=== PATIENT | male | born 1940 | race Caucasian/White ===

== ENCOUNTER → 2016-12-18 | Outpatient (CLI) | payer OTHER | LOC: MMPC 11:11 | PROVIDERS: ATTEND Internal Medicine | DX: M48.06 Spinal stenosis, lumbar region (principal); J44.9 Chronic obstructive pulmonary disease, unspecified; Z02.89 Encounter for other administrative examinations | CPT/HCPCS: 99214; G0463 ==

== ENCOUNTER → 2017-03-19 | Outpatient (CLI) | payer OTHER | LOC: MMPC 11:11 | PROVIDERS: ATTEND Internal Medicine | DX: M48.06 Spinal stenosis, lumbar region (principal); M51.36 Other intervertebral disc degeneration, lumbar region; M51.34 Other intervertebral disc degeneration, thoracic region; J44.9 Chronic obstructive pulmonary disease, unspecified | CPT/HCPCS: 99214; G0463 ==

== ENCOUNTER 2017-05-01 08:37 | Inpatient (IN) | payer OTHER ==
[2017-05-01] MEDS ORDERED: ALBUTEROL SULFATE 2.5 MG/3 ML NEB ONE ×2 (08:51→08:53)
[2017-05-01] MEDS ORDERED: NORMAL SALINE 10 ML SYRINGE FLUSH IVP PRN ×4 (08:53→11:49)
[2017-05-01 09:03] LABS: HEMATOCRIT 42.8 % (42.0-52.0); HEMOGLOBIN 14.3 g/dL (14.0-18.0); MEAN CORPUSCULAR HEMOGLOBIN 31.4 PG (27-31); MEAN CORPUSCULAR HGB CONC 33.4 g/dL (33-37); MEAN CORPUSCULAR VOLUME 93.9 FL (80-90); MEAN PLATELET VOLUME 9.2 FL (7.4-12.2); RED BLOOD COUNT 4.56 10^6/uL (4.70-6.10)
[2017-05-01 09:06] LABS: CALCIUM 9.3 mg/dL (8.7-10.7); SERUM ALBUMIN 4.4 g/dL (3.5-4.8)
--- NOTE | 2017-05-01 09:09 | PDOC ---
Dyspnea HPI - General Chief Complaint: Dyspnea Stated Complaint: difficulty breathing Date Seen by Provider: 05/01/17 Time Seen by Provider: 08:50 Source: POSITIVE: Patient - History of Present Illness Initial Comments: Patient is a very nice 76-year-old gentleman with known history of COPD long history of smoking and stopped about 6 years ago who about a week ago started to have increasing shortness of breath cough and this has worsened through that period time until this morning he was having marketed difficulty breathing despite turning his baseline 3 L of oxygen up to greater than 5 L and still only satting in the mid 80s. He contacted EMS. EMS arrived and found him to be on 5-6 L satting around 86 with marketed dyspnea. He was given a DuoNeb treatment and he had 2 previous albuterol nebs through the wee hours of the morning. In route to the emergency department he was given 125 mg of Solu- Medrol by EMS as well as a milligram of Ativan IV. He is breathing a little bit better is on a Venturi mask. He has had some significant sputum production recently. - Patient Home Medications Home Medications: Home Medications Hydrocortisone/Oatmeal/Aloe/E [Hydrocortisone 1% Cream] 28.4 gm TP QID 30 Days 03/13/12 Ascorbic Acid [Vitamin C] 1 tab PO DAILY tab 08/03/13 Aspirin 1 tab PO DAILY tab 08/03/13 Bacitracin/Polymyxin B Sulfate [Polysporin Eye Ointment] 3.5 gm OP QID #1 tube 08/03/13 Desonide 1 applic TP BID PRN #1 tube 08/01/14 Ferrous Gluconate 1 tab PO BID #60 tab 08/16/14 Magnesium Oxide [Magnesium] 500 mg PO DAILY cap 12/18/16 Albuterol Sulfate [Ventolin Hfa] 2 puff INH Q4-6H #3 inh 01/22/17 Omeprazole 1 cap ORAL QD #90 capsule 01/31/17 Tiotropium [place] [Spiriva] 18 mcg IH QD #90 capsule 01/31/17 Oxycodone HCl [Oxycontin] 1 tab PO Q8H #90 tab 03/19/17 Oxycodone HCl/Acetaminophen [Oxycodon-Acetaminophen 7.5-325] 1 tab PO Q4H PRN # 180 tab 03/19/17 Temazepam 1 cap PO QHS PRN #90 cap 03/19/17 Fluticasone/Salmeterol [Advair Hfa] 2 puff INH BID #3 inh 03/31/17 Imiquimod [Aldara] 1 applic TOPICAL 3XW #36 sachet 03/31/17 Montelukast Sodium [Singulair] 10 mg ORAL QD #90 tab 03/31/17 Potassium Chloride [Klor-Con M20] 20 meq PO BID #180 tab 03/31/17 Citalopram Hydrobromide [Citalopram Hbr] 0.5 tab PO DAILY #45 tab 04/09/17 Tizanidine HCl 1 tab PO Q8H PRN #270 tab 04/09/17 - Patient Allergies Allergies/Adverse Reactions: Allergies Allergy/AdvReac Type Severity Reaction Status Date / Time meperidine HCl [From Demerol] Allergy Severe HALLUCINATI Verified 05/01/17 09:01 ONS pentazocine lactate Allergy Intermediate NAUSEA Verified 05/01/17 09:01 [From [place]] Sulfa (Sulfonamide Allergy Intermediate rash Verified 05/01/17 09:01 Antibiotics) PAIN CONTRACT AdvReac Unknown NOT Uncoded 05/01/17 09:01 APPLICABLE Past Medical History - heen HEENT History: Denies History Additional HEENT History: UPPER AND LOWER DENTURES Cardiovascular History: Angina Additional Cardiovasular History: STENT PLACED Respiratory History: COPD Additional Respiratory History: RECENT URI, BRONCHITIS, TREATED WITH ABX Gastrointestinal History: Denies History Additional Gastrointestinal History: Hx of constipation. 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 History of Sexually Transmitted Diseases: No Cancer History: Denies History History of MDRO: No History of Other Communicable Diseases: No Alcohol Use: None Substance Use Type: None Previous Surgical History: Yes Type / Date of Surgery: T&A/ BILAT CTR/ COLE/ CORONARY STENT/ MASS REMOVED FROM PANCREASE, NON CA/ ANKLE SX/ LEFT TARSAL TUNNEL/TSA Anesthesia Reactions: No Malignant Hyperthermia: No Significant Family History: No pertinent family hx Past Medical History Reviewed: Reviewed - No Changes ROS - Limitations ROS Limitations: No Limitations Constitution: DENIES: Chills Cardiovascular: REPORTS: Denies Cardiac Symptoms Respiratory: REPORTS: Shortness Of Breath Neurological: REPORTS: Denies Neuro Symptoms Gastrointestinal: REPORTS: Denies GI Symptoms Dyspnea Physical Exam - General Appearance General Appearance: REPORTS: Alert, Cooperative - HEENT HEENT: POSITIVE: Head Inspection Nml, Eyes Inspection Nml - Respiratory Respiratory: REPORTS: Other (Has definite work of breathing. He is also to Neck and requiring a mask to maintain saturations in the 90s. Very wheezy limited air movement) - Cardiovascular Cardiovascular: REPORTS: Regular Rate and Rhythm, Heart Sounds Normal - Skin Skin: REPORTS: Intact, Normal For Race - Extremities Extremity: Non-Tender: (All Extremities), Normal ROM: (All Extremities), Normal Inspection: (All Extremities) - Neurological / Psychological Neurological: POSITIVE: Affect Apporpriate, Oriented X3 Patient Care Time - Estimated PCT Patient Care Time (In Minutes): 15 Vital Signs - Recent Vital Signs Vital Signs: Vital Signs (Last 8 hours) Temp Pulse Resp BP Pulse Ox 05/01/17 08:37 97.2 F 102 H 22 130/68 98 - VS Reviewed Vital Signs Reviewed: Yes Discharge Clinical Impression: Chronic obstructive lung disease
[2017-05-01 09:18] LABS: PLATELET MORPHOLOGY COMMENT SEE COMMENTS (NORM); RBC MORPHOLOGY COMMENT NORMAL MORPHOLOGY (NORM); WBC MORPHOLOGY COMMENT SEE COMMENTS (NORM)
[2017-05-01 09:19] LABS: BAND NEUTROPHILS % 0 % (0-10); BASOPHILS % (MANUAL) 0 % (0-1); EOSINOPHILS % (MANUAL) 2 % (0-8); LYMPHOCYTES % (MANUAL) 19 % (10-50); MONOCYTES % (MANUAL) 4 % (0-12); NEUTROPHILS % (MANUAL) 75 % (50-80)
[2017-05-01] MEDS ORDERED: cefTRIAXone Inj 2 GM in Sodium Chloride 0.9% 100 ML IV ONE (09:21)
[2017-05-01] MEDS ORDERED: AZITHROMYCIN 250 MG TABLET PO ONE (09:21)
--- NOTE | 2017-05-01 09:26 | PDOC ---
Transfer of Care - Care Accepted Time Care Transferred: 09:00 Report from Transferring Physician Received: Yes MDM / ED Course: This patient came to the emergency room via EMS this morning with hypoxia. Patient was not feeling well yesterday and overnight began to have increasing oxygen requirements. He did utilize multiple nebulizer treatments at home. When EMS arrived his oxygen saturations were in the mid 80s, and was requiring 5 L of oxygen to maintain his oxygen saturation in the low 90 range. He was transported to [facility] for further evaluation. During his time in the emergency room under Dr. Michaud's care labs were drawn, blood cultures obtained, chest x-ray was ordered. Results for all studies were pending at the end of Dr. Michaud's shift. Patient did receive DuoNeb and Solu-Medrol. Home Medications: Home Medications Hydrocortisone/Oatmeal/Aloe/E [Hydrocortisone 1% Cream] 28.4 gm TP QID 30 Days 03/13/12 Ascorbic Acid [Vitamin C] 1 tab PO DAILY tab 08/03/13 Aspirin 1 tab PO DAILY tab 08/03/13 Bacitracin/Polymyxin B Sulfate [Polysporin Eye Ointment] 3.5 gm OP QID #1 tube 08/03/13 Desonide 1 applic TP BID PRN #1 tube 08/01/14 Ferrous Gluconate 1 tab PO BID #60 tab 08/16/14 Magnesium Oxide [Magnesium] 500 mg PO DAILY cap 12/18/16 Albuterol Sulfate [Ventolin Hfa] 2 puff INH Q4-6H #3 inh 01/22/17 Omeprazole 1 cap ORAL QD #90 capsule 01/31/17 Tiotropium [place] [Spiriva] 18 mcg IH QD #90 capsule 01/31/17 Oxycodone HCl [Oxycontin] 1 tab PO Q8H #90 tab 03/19/17 Oxycodone HCl/Acetaminophen [Oxycodon-Acetaminophen 7.5-325] 1 tab PO Q4H PRN # 180 tab 03/19/17 Temazepam 1 cap PO QHS PRN #90 cap 03/19/17 Fluticasone/Salmeterol [Advair Hfa] 2 puff INH BID #3 inh 03/31/17 Imiquimod [Aldara] 1 applic TOPICAL 3XW #36 sachet 03/31/17 Montelukast Sodium [Singulair] 10 mg ORAL QD #90 tab 03/31/17 Potassium Chloride [Klor-Con M20] 20 meq PO BID #180 tab 03/31/17 Citalopram Hydrobromide [Citalopram Hbr] 0.5 tab PO DAILY #45 tab 04/09/17 Tizanidine HCl 1 tab PO Q8H PRN #270 tab 04/09/17 Allergies/Adverse Reactions: Allergies meperidine HCl [From Demerol] Allergy (Severe, Verified 05/01/17 09:01) HALLUCINATIONS pentazocine lactate [From [place]] Allergy (Intermediate, Verified 05/01/17 09:01 ) NAUSEA Sulfa (Sulfonamide Antibiotics) Allergy (Intermediate, Verified 05/01/17 09:01) rash PAIN CONTRACT Adverse Reaction (Unknown, Uncoded 05/01/17 09:01) NOT APPLICABLE Vital Signs Reviewed: Yes Nurse's Notes Reviewed & Considered: Yes - Pending Patient Care Items Pending Patient Care Items: POSITIVE: Labs, X-ray Results - Expected Patient Outcome Tentative Impression of Patient: COPD exacerbation versus pneumonia Expected Disposition: POSITIVE: Admit IP - Re-Evaluation of Patient Re-Examine Time:: 10:09 Disposition of Patient: POSITIVE: Admitted Counseled: POSITIVE: Patient, RE: Lab Results, RE: Radiology Results, RE: DX, RE : Need for F/U Clinical Impression Documented: Yes - Results Reviewed Lab Results Reviewed by Me: Yes Lab Results: Laboratory Results 05/01/17 05/01/17 05/01/17 Range/Units 08:56 09:25 09:32 WBC 7.77 (4.8-10.8) 10^3/uL RBC 4.56 L (4.70-6.10) 10^6/uL Hgb 14.3 (14.0-18.0) g/dL Hct 42.8 (42.0-52.0) % MCV 93.9 H (80-90) FL MCH 31.4 H (27-31) PG MCHC 33.4 (33-37) g/dL RDW Std Deviation 47.7 (39-50) fL RDW Coeff of Dwight 14.2 (11.5-14.5) % Plt Count 189 (140-350) 10*3/uL MPV 9.2 (7.4-12.2) FL Neutrophils % (Manual) 75 (50-80) % Band Neutrophils % 0 (0-10) % Lymphocytes % (Manual) 19 (10-50) % Monocytes % (Manual) 4 (0-12) % Eosinophils % (Manual) 2 (0-8) % Basophils % (Manual) 0 (0-1) % Metamyelocytes % Not Reportable Myelocytes % Not Reportable Promyelocytes % Not Reportable Blast Cells Not Reportable WBC Morphology Comment See comments (NORM) Plt Morphology Comment See comments (NORM) RBC Morph Comment Normal morphology (NORM) VBG pH 7.33 (7.32-7.42) VBG pCO2 43 L (45-55) mmHg VBG HCO3 23 (22-26) mmol/L VBG Base Excess -3 L (-2-2) MMOL/L Sodium 143 (135-145) meq/L Potassium 3.1 L (3.8-5.2) meq/L Chloride 102 (98-112) meq/L Carbon Dioxide 24 (23-33) meq/L Anion Gap 17 (5-20) BUN 20 (7-22) mg/dL Creatinine 0.8 (0.70-1.50) mg/dL Estimated GFR (>60 ml/min/1.73m(2)) BUN/Creatinine Ratio 25.00 H (6-20) Glucose 111 H (78-110) mg/dL Calculated Osmolality 299.0 H (267-292) mOsm/kg Lactic Acid 2.1 (0.70-2.10) MMOL/L Calcium 9.3 (8.7-10.7) mg/dL Total Bilirubin 0.4 (0.3-1.2) mg/dL AST 57 (21-57) IU/L ALT 54 (21-72) IU/L Alkaline Phosphatase 181 H (38-126) IU/L Total Protein 7.9 (6.1-8.0) g/dL Albumin 4.4 (3.5-4.8) g/dL Globulin 3.5 (2.50-4.10) g/dL Albumin/Globulin Ratio 1.20 L (1.3-2.0) mg/g Patient Care Time - Estimated PCT Patient Care Time (In Minutes): 20 Vital Signs - Recent Vital Signs Vital Signs: Vital Signs (Last 8 hours) Temp Pulse Resp BP Pulse Ox 05/01/17 08:37 97.2 F 102 H 22 130/68 98 - VS Reviewed Vital Signs Reviewed: Yes Discharge Clinical Impression: Chronic obstructive lung disease Discharge Disposition: Admit to Inpatient Condition: Stable Patient Instructions Given at Discharge: COPD (Chronic Obstructive Pulmonary Disease) (ED) Date Decision to Admit to Inpatient: 05/01/17 Time Decision to Admit to Inpatient: 10:00
[2017-05-01 09:39] LABS: VENOUS PH 7.33 (7.32-7.42)
--- NOTE | 2017-05-01 10:02 | DI ---
XR CXR 2VW PA/LAT,05/01/2017 8:53 AM: Clinical History: Dyspnea and COPD exacerbation. Previous Exam: August 15, 2016 Findings: PA and lateral views of the chest are obtained, and demonstrate some mild increased density within th e right lower lobe. There is stable diffuse COPD. There is flattening of the hemidiaphragms. Patient is status post left total shoulder arthroplasty. There is a 1 cm cortical defect involving the medial cortex of the right proximal humerus. Overlying EKG leads are seen. The cardiomediastinum is stable and there is stable tortuosity of the a collin. Impression: 1. Mild increased density within the lung bases bilaterally is most consistent with some early airspa ce disease. Cannot rule out pneumonia. 2. Small 1 cm cortical lucency involving the medial cortex of the right proximal humerus. Recommend d edicated humeral views for further evaluation.
[2017-05-01] MEDS ORDERED: Sodium Chloride 0.9% 1,000 ML PRIMARY IV ONE (10:23)
[2017-05-01] MEDS ORDERED: LORazepam 2 MG/1 ML VIAL IVP ONE (10:42)
[2017-05-01] MEDS ORDERED: IPRATROPIUM/ALBUTEROL SULFATE 3 ML NEB NEB PRN (11:25)
[2017-05-01] MEDS ORDERED: LIDOCAINE W/ SODIUM BICARB 0.5 ML SYR SUBD PRN ×2 (11:25→11:49)
[2017-05-01] MEDS ORDERED: ONDANSETRON 4 MG/2 ML VIAL IVP PRN ×2 (11:25→11:49)
[2017-05-01] MEDS ORDERED: cefTRIAXone Inj 2 GM in Sodium Chloride 0.9% 100 ML IV SCH (11:30)
--- NOTE | 2017-05-01 11:36 | PDOC ---
History and Physical - History of Present Illness History of Present Illness: This very nice 76-year-old gentleman who presents to the emergency room with hypoxia brought in by EMS. His is at the bedside he started having some shortness of breath yesterday requiring more oxygen than usual he was doing the nebulizer treatments at home but the his oxygen requirements continued to increase blood cultures were drawn and he did receive a DuoNeb and steroids most likely pneumonia on x-ray patient will be admitted for further care Past Medical History Medical History: Coronary artery disease with 1 stent, COPD, depression Tobacco Use: Never Smoker Do you dip or chew tobacco: No Substance Use Type: None Medication / Allergies Home Medications: Home Medications Medication Instructions Recorded Confirmed Type Hydrocortisone/Oatmeal/Aloe/E 28.4 gm TP QID 30 Days 03/13/12 05/01/17 Clinic [Hydrocortisone 1% Cream] Ascorbic Acid [Vitamin C] 1 tab PO DAILY tab 08/03/13 05/01/17 History Aspirin 1 tab PO DAILY tab 08/03/13 05/01/17 History Bacitracin/Polymyxin B Sulfate 3.5 gm OP QID #1 tube 08/03/13 05/01/17 Clinic [Polysporin Eye Ointment] Desonide 1 applic TP BID PRN #1 tube 08/01/14 05/01/17 Clinic Ferrous Gluconate 1 tab PO BID #60 tab 08/16/14 05/01/17 Clinic Magnesium Oxide [Magnesium] 500 mg PO DAILY cap 12/18/16 05/01/17 History Albuterol Sulfate [Ventolin Hfa] 2 puff INH Q4-6H #3 inh 01/22/17 05/01/17 Clinic Omeprazole 1 cap ORAL QD #90 capsule 01/31/17 05/01/17 Clinic Tiotropium [place] [Spiriva] 18 mcg IH QD #90 capsule 01/31/17 05/01/17 Clinic Oxycodone HCl [Oxycontin] 1 tab PO Q8H #90 tab 03/19/17 05/01/17 Clinic Oxycodone HCl/Acetaminophen 1 tab PO Q4H PRN #180 tab 03/19/17 05/01/17 Clinic [Oxycodon-Acetaminophen 7.5-325] Temazepam 1 cap PO QHS PRN #90 cap 03/19/17 05/01/17 Clinic Fluticasone/Salmeterol [Advair Hfa] 2 puff INH BID #3 inh 03/31/17 05/01/17 [facility] Imiquimod [Aldara] 1 applic TOPICAL 3XW #36 sachet 03/31/17 05/01/17 [facility] Montelukast Sodium [Singulair] 10 mg ORAL QD #90 tab 03/31/17 05/01/17 [facility] Potassium Chloride [Klor-Con M20] 20 meq PO BID #180 tab 03/31/17 05/01/17 [facility] Citalopram Hydrobromide 0.5 tab PO DAILY #45 tab 04/09/17 05/01/17 [facility] [Citalopram Hbr] Tizanidine HCl 1 tab PO Q8H PRN #270 tab 04/09/17 05/01/17 [facility] Allergies/Adverse Reactions: Allergies Allergy/AdvReac Type Severity Reaction Status Date / Time meperidine HCl [From Demerol] Allergy Severe HALLUCINATI Verified 05/01/17 09:01 ONS pentazocine lactate Allergy Intermediate NAUSEA Verified 05/01/17 09:01 [From [place]] Sulfa (Sulfonamide Allergy Intermediate rash Verified 05/01/17 09:01 Antibiotics) PAIN CONTRACT AdvReac Unknown NOT Uncoded 05/01/17 09:01 APPLICABLE Review of Systems - Respiratory Respiratory: REPORTS: Cough, Sputum, Wheezing - Cardiovascular Cardiovascular: DENIES: Negative System Review, Chest Pain, Edema, Syncope, Palpitations, Orthopnea, Paroxysmal Nocturnal Dyspnea, Other, See HPI - Gastrointestinal Gastrointestinal / Abdominal: DENIES: Negative System Review, Nausea, Vomiting, Diarrhea, Constipation, Abdominal Pain, Bloody Stool, Poor Appetite, Heartburn, Regurgitation, Bloating, Lactose Intolerance, Melena, Bright Red Blood Per Rectum, Other, See HPI - Neurological Neurologic: DENIES: Negative System Review, Headache, Numbness/Paresthesia, Tremors, Weakness, Seizures, Head Trauma, LOC, Dizziness, Confusion, Memory Loss , Difficulty Walking, Incoordination, Other, See HPI Exam - Vitals Vital Signs: Vital Signs Temperature 97.2 F Temperature Source Temporal Artery Scan Pulse Rate [Pulse Oximeter 102 Right] Respiratory Rate 22 Blood Pressure [Right Arm] 130/68 Pulse Ox 98 Oxygen Flow Rate 5 Oxygen Delivery Method Mask-Simple Height 5 ft 4 in Weight 64.864 kg - General General Appearance: POSITIVE: Cooperative, Mild Distress - Head Head Exam: POSITIVE: Normal Inspection, Normocephalic, Atraumatic - Eye Eye Exam: POSITIVE: PERRL, EOMI - Neck Neck Exam: POSITIVE: Normal Inspection - Respiratory Additional Respiratory Exam Details: Decreased sounds bilaterally bilateral expiratory wheezing - Cardiovascular Cardiovascular Exam: POSITIVE: RRR, No Murmur, No Clicks - GI/Abdominal GI/Abdominal Exam: POSITIVE: Normal Bowel Sounds, Non Tender, Soft - Extremities Extremities Exam: POSITIVE: No Clubbing Present, No Edema Present, No Cyanosis Present Results - Labs CBC and BMP: 05/01/17 08:56 05/01/17 08:56 Labs - Last 24 Hours: Laboratory Results 05/01/17 05/01/17 05/01/17 Range/Units 08:56 09:25 09:32 WBC 7.77 (4.8-10.8) 10^3/uL RBC 4.56 L (4.70-6.10) 10^6/uL Hgb 14.3 (14.0-18.0) g/dL Hct 42.8 (42.0-52.0) % MCV 93.9 H (80-90) FL MCH 31.4 H (27-31) PG MCHC 33.4 (33-37) g/dL RDW Std Deviation 47.7 (39-50) fL RDW Coeff of Dwight 14.2 (11.5-14.5) % Plt Count 189 (140-350) 10*3/uL MPV 9.2 (7.4-12.2) FL Neutrophils % (Manual) 75 (50-80) % Band Neutrophils % 0 (0-10) % Lymphocytes % (Manual) 19 (10-50) % Monocytes % (Manual) 4 (0-12) % Eosinophils % (Manual) 2 (0-8) % Basophils % (Manual) 0 (0-1) % Metamyelocytes % Not Reportable Myelocytes % Not Reportable Promyelocytes % Not Reportable Blast Cells Not Reportable WBC Morphology Comment See comments (NORM) Plt Morphology Comment See comments (NORM) RBC Morph Comment Normal morphology (NORM) VBG pH 7.33 (7.32-7.42) VBG pCO2 43 L (45-55) mmHg VBG HCO3 23 (22-26) mmol/L VBG Base Excess -3 L (-2-2) MMOL/L Sodium 143 (135-145) meq/L Potassium 3.1 L (3.8-5.2) meq/L Chloride 102 (98-112) meq/L Carbon Dioxide 24 (23-33) meq/L Anion Gap 17 (5-20) BUN 20 (7-22) mg/dL Creatinine 0.8 (0.70-1.50) mg/dL Estimated GFR (>60 ml/min/1.73m(2)) BUN/Creatinine Ratio 25.00 H (6-20) Glucose 111 H (78-110) mg/dL Calculated Osmolality 299.0 H (267-292) mOsm/kg Lactic Acid 2.1 (0.70-2.10) MMOL/L Calcium 9.3 (8.7-10.7) mg/dL Total Bilirubin 0.4 (0.3-1.2) mg/dL AST 57 (21-57) IU/L ALT 54 (21-72) IU/L Alkaline Phosphatase 181 H (38-126) IU/L Troponin I < 0.012 (< 0.040) ng/mL Total Protein 7.9 (6.1-8.0) g/dL Albumin 4.4 (3.5-4.8) g/dL Globulin 3.5 (2.50-4.10) g/dL Albumin/Globulin Ratio 1.20 L (1.3-2.0) mg/g Assessment and Plan - Patient Problems (1) Pneumonia Current Visit: Yes Status: Acute Comment: IV antibiotics CT scan of the chest is pending. (2) Chronic obstructive lung disease Current Visit: Yes Status: Acute Comment: Continue steroids and nebulizer treatments Advair and IV fluids
--- NOTE | 2017-05-01 11:52 | DI ---
CT CTA CHEST NONCORONARY W/WO,05/01/2017 10:08 AM: Clinical History: Shortness of breath Previous Exam: July 04, 2014 Findings: Multiple helically acquired CT images are obtained through the chest following a CT chest angiogram p rotocol, and demonstrate diffuse COPD. There is some septal thickening just anterior to the right irineo or fissure in the right upper lobe and the right middle lobe. There is no evidence of pleural effusion. Peripheral vascular calcifications are seen. There is a 5.1 cm simple cyst noted within the right lobe of the liver which is stable from the prior exam. Pulmonary arteries are normal without filling defect or truncation to suggest pulmonary embolism. Coronary artery calcifications are also noted. Diffuse degenerative changes of the thoracic spine are noted as well. Impression: 1. No evidence of pulmonary embolism. 2. Coronary artery disease. 3. Septal thickening just anterior to the major fissure in the right upper and middle lobe. These fin dings are most consistent with edema or inflammation. Cannot completely rule out the possibility of a n early pneumonia.
[2017-05-01] MEDS: oxyCODONE ER Tab 20 MG TAB PO SCH ×2 (12:27→19:46)
[2017-05-01] MEDS: Montelukast Tab 10 MG TAB PO SCH (12:30)
[2017-05-01] MEDS: NORMAL SALINE 10 ML SYRINGE FLUSH IVP PRN (13:02)
[2017-05-01] MEDS: IPRATROPIUM/ALBUTEROL SULFATE 3 ML NEB NEB PRN ×2 (14:46→18:33)
[2017-05-01] MEDS: OMEPRAZOLE 40 MG CAPSULE PO SCH (17:11)
[2017-05-01] MEDS: tiZANidine Tab 4 MG TAB PO PRN (19:58)
[2017-05-01] MEDS: oxyCODONE/APAP 7.5/325 Tab 1 TAB TAB PO PRN (19:59)
[2017-05-01] MEDS: POTASSIUM CHLORIDE 20 MEQ TAB PO SCH (20:00)
[2017-05-01] MEDS: FERROUS GLUCONATE 324 MG TABLET PO SCH (20:00)
[2017-05-01] MEDS: TEMAZEPAM 30 MG PO PRN (20:00)
[2017-05-01] MEDS: [UNRECOGNIZED DRUG - REMARK] INH SCH (22:01)
[2017-05-02] MEDS: oxyCODONE ER Tab 20 MG TAB PO SCH ×3 (03:22→20:27)
[2017-05-02] MEDS: oxyCODONE/APAP 7.5/325 Tab 1 TAB TAB PO PRN ×3 (03:23→20:28)
[2017-05-02] MEDS: IPRATROPIUM/ALBUTEROL SULFATE 3 ML NEB NEB PRN ×5 (03:30→19:41)
[2017-05-02 05:02] LABS: BASOPHILS # (AUTO) 0.02 10*3/UL; BASOPHILS % (AUTO) 0.3 % (0-1); EOSINOPHILS # (AUTO) 0 10*3/UL; EOSINOPHILS % (AUTO) 0 % (0-8); HEMATOCRIT 34.9 % (42.0-52.0); HEMOGLOBIN 11.4 g/dL (14.0-18.0); MEAN CORPUSCULAR HEMOGLOBIN 30.8 PG (27-31); MEAN CORPUSCULAR HGB CONC 32.7 g/dL (33-37); MEAN CORPUSCULAR VOLUME 94.3 FL (80-90); MEAN PLATELET VOLUME 9.1 FL (7.4-12.2); MONOCYTES % (AUTO) 11.2 % (5-15); NEUTROPHILS # (AUTO) 5.49 10*3/UL
[2017-05-02 05:06] LABS: PLATELET MORPHOLOGY COMMENT NORMAL MORPHOLOGY (NORM); RBC MORPHOLOGY COMMENT NORMAL MORPHOLOGY (NORM); WBC MORPHOLOGY COMMENT NORMAL MORPHOLOGY (NORM)
[2017-05-02 05:08] LABS: CALCIUM 8.1 mg/dL (8.7-10.7); SERUM ALBUMIN 3.2 g/dL (3.5-4.8)
[2017-05-02] MEDS: POTASSIUM CHLORIDE 20 MEQ TAB PO SCH ×2 (08:53→20:27)
[2017-05-02] MEDS: ASPIRIN 325 MG TABLET PO SCH (08:53)
[2017-05-02] MEDS: predniSONE Tab 20 MG TAB PO SCH (08:53)
[2017-05-02] MEDS: CITALOPRAM 20 MG TABLET PO SCH (08:54)
[2017-05-02] MEDS: FERROUS GLUCONATE 324 MG TABLET PO SCH ×2 (08:54→20:28)
[2017-05-02] MEDS: ENOXAPARIN SODIUM 40 MG/0.4 ML SYRINGE SUBCUT SCH (08:54)
[2017-05-02] MEDS: Montelukast Tab 10 MG TAB PO SCH (08:54)
[2017-05-02] MEDS ORDERED: predniSONE Tab 20 MG TAB PO SCH (09:00)
[2017-05-02] MEDS ORDERED: ENOXAPARIN SODIUM 40 MG/0.4 ML SYRINGE SUBCUT SCH (09:00)
[2017-05-02] MEDS ORDERED: CELECOXIB 200 MG CAPSULE PO SCH (09:06)
[2017-05-02] MEDS: [UNRECOGNIZED DRUG - REMARK] INH SCH ×2 (09:52→19:42)
[2017-05-02] MEDS: cefTRIAXone Inj 2 GM in Sodium Chloride 0.9% 100 ML IV SCH (10:15)
--- NOTE | 2017-05-02 12:53 | PDOC(PROG) ---
Interval History: Doing much better less short of breath is so happy about being and feeling somewhat better Objective : Data - Labs CBC and BMP: 05/02/17 04:42 05/02/17 04:42 Labs - Last 24 Hours: Laboratory Results 05/02/17 Range/Units 04:42 WBC 7.13 (4.8-10.8) 10^3/uL RBC 3.70 L (4.70-6.10) 10^6/uL Hgb 11.4 L (14.0-18.0) g/dL Hct 34.9 L (42.0-52.0) % MCV 94.3 H (80-90) FL MCH 30.8 (27-31) PG MCHC 32.7 L (33-37) g/dL RDW Std Deviation 46.3 (39-50) fL RDW Coeff of Dwight 13.9 (11.5-14.5) % Plt Count 161 (140-350) 10*3/uL MPV 9.1 (7.4-12.2) FL Immature Gran % (Auto) 0.3 (0-5) % Neut % (Auto) 77.0 (50-80) % Lymph % (Auto) 11.2 (10-50) % [place] % (Auto) 11.2 (5-15) % Eos % (Auto) 0 (0-8) % Baso % (Auto) 0.3 (0-1) % Immature Gran # (Auto) 0.02 10*3/UL Neut # (Auto) 5.49 10*3/UL Lymph # (Auto) 0.80 10*3/uL [place] # (Auto) 0.80 (0.3-0.8) 10*3/UL Eos # (Auto) 0 10*3/UL Baso # (Auto) 0.02 10*3/UL WBC Morphology Comment Normal morphology (NORM) Plt Morphology Comment Normal morphology (NORM) RBC Morph Comment Normal morphology (NORM) Sodium 142 (135-145) meq/L Potassium 4.4 D (3.8-5.2) meq/L Chloride 111 (98-112) meq/L Carbon Dioxide 23 (23-33) meq/L Anion Gap 8 (5-20) BUN 14 (7-22) mg/dL Creatinine 0.7 (0.70-1.50) mg/dL Estimated GFR (>60 ml/min/1.73m(2)) BUN/Creatinine Ratio 20.00 (6-20) Glucose 107 (78-110) mg/dL Calculated Osmolality 294.0 H (267-292) mOsm/kg Calcium 8.1 L (8.7-10.7) mg/dL Total Bilirubin 0.2 L (0.3-1.2) mg/dL AST 53 (21-57) IU/L ALT 45 (21-72) IU/L Alkaline Phosphatase 109 (38-126) IU/L Total Protein 5.8 L (6.1-8.0) g/dL Albumin 3.2 L (3.5-4.8) g/dL Globulin 2.6 (2.50-4.10) g/dL Albumin/Globulin Ratio 1.20 L (1.3-2.0) mg/g Objective : Exam - General General Appearance: Cooperative - Respiratory Additional Respiratory Exam Details: Better air movement but still very tight with expiratory wheezes - Cardiovascular Cardiovascular Exam: RRR, No Murmur, No Clicks - GI/Abdominal GI/Abdominal Exam: Normal Bowel Sounds, Non Tender, Non Distended, Soft - Extremities Extremities Exam: No Clubbing Present, No Edema Present Assessment and Plan - Patient Problems (1) Pneumonia Current Visit: Yes Status: Acute Comment: Continue IV antibiotics and steroids most likely this represents COPD exacerbation and not pneumonia (2) Chronic obstructive lung disease Current Visit: Yes Status: Acute Comment: Continue inhalers as well as antibiotics and steroids (3) Hypokalemia Current Visit: Yes Status: Acute Comment: This was replaced and improved
[2017-05-02] MEDS: OMEPRAZOLE 40 MG CAPSULE PO SCH (15:56)
[2017-05-02] MEDS: tiZANidine Tab 4 MG TAB PO PRN (20:27)
[2017-05-02] MEDS: TEMAZEPAM 30 MG PO PRN (20:28)
[2017-05-03] MEDS: oxyCODONE ER Tab 20 MG TAB PO SCH ×2 (04:14→12:03)
[2017-05-03] MEDS: IPRATROPIUM/ALBUTEROL SULFATE 3 ML NEB NEB PRN ×4 (04:21→14:39)
[2017-05-03] MEDS: [UNRECOGNIZED DRUG - REMARK] INH SCH (06:44)
[2017-05-03] MEDS: ASPIRIN 325 MG TABLET PO SCH (08:45)
[2017-05-03] MEDS: NORMAL SALINE 10 ML SYRINGE FLUSH IVP PRN (08:45)
[2017-05-03] MEDS: CITALOPRAM 20 MG TABLET PO SCH (08:45)
[2017-05-03] MEDS: POTASSIUM CHLORIDE 20 MEQ TAB PO SCH (08:45)
[2017-05-03] MEDS: predniSONE Tab 20 MG TAB PO SCH (08:46)
[2017-05-03] MEDS: FERROUS GLUCONATE 324 MG TABLET PO SCH (08:46)
[2017-05-03] MEDS: ENOXAPARIN SODIUM 40 MG/0.4 ML SYRINGE SUBCUT SCH (08:46)
[2017-05-03] MEDS: Montelukast Tab 10 MG TAB PO SCH (08:46)
[2017-05-03] MEDS: oxyCODONE/APAP 7.5/325 Tab 1 TAB TAB PO PRN (08:55)
[2017-05-03] MEDS: cefTRIAXone Inj 2 GM in Sodium Chloride 0.9% 100 ML IV SCH (10:08)
[2017-05-03 14:24] VITALS: RESP 22; TEMP 97.8
--- NOTE | 2017-05-03 15:05 | DCSUMMARY ---
Hospitalization Summary Admit Date: 05/01/17 Discharge Date: 05/03/17 Primary Diagnosis:: COPD exacerbation Hospital Course: This very pleasant 76-year-old male who came in short of breath, and was admitted for further evaluation and management. It was thought initially that he might have a pneumonia, and he was placed on Rocephin and Zithromax. Became more clear after CTA of the chest that he had COPD with some septal thickening consistent with a COPD exacerbation. No evidence of pulmonary emboli. He responded very well to albuterol and respiratory therapies and antibiotics. He states today that he feels significantly better than when he came into the hospital he would like to go home. He feels that he's back to his normal baseline. No complaints of chest pain, nausea or vomiting, or shortness of breath today beyond baseline shortness of breath. He states he has oxygen and breathing supplies at home as well as albuterol at home. Assessment and Plan: 1. As per discharge assessments noted 2. Disposition: Patient is discharged home. 3. Condition on discharge, stable and improved. 4. Diet: regular diet 5. Activities: resume normal activities 6. Follow-Up: 1. See Dr. Redding in one week 2. 7. Medications at the Time of Discharge: Home Medications Medication Instructions Recorded Confirmed Type Hydrocortisone/Oatmeal/Aloe/E 28.4 gm TP QID 30 Days 03/13/12 05/01/17 Clinic [Hydrocortisone 1% Cream] Ascorbic Acid [Vitamin C] 1 tab PO DAILY tab 08/03/13 05/01/17 History Aspirin 1 tab PO DAILY tab 08/03/13 05/01/17 History Bacitracin/Polymyxin B Sulfate 3.5 gm OP QID #1 tube 08/03/13 05/01/17 Clinic [Polysporin Eye Ointment] Desonide 1 applic TP BID PRN #1 tube 08/01/14 05/01/17 Clinic Ferrous Gluconate 1 tab PO BID #60 tab 08/16/14 05/01/17 Clinic Magnesium Oxide [Magnesium] 500 mg PO DAILY cap 12/18/16 05/01/17 History Albuterol Sulfate [Ventolin Hfa] 2 puff INH Q4-6H #3 inh 01/22/17 05/01/17 Clinic Omeprazole 1 cap ORAL QD #90 capsule 01/31/17 05/01/17 Clinic Tiotropium [place] [Spiriva] 18 mcg IH QD #90 capsule 01/31/17 05/01/17 Clinic Oxycodone HCl [Oxycontin] 1 tab PO Q8H #90 tab 03/19/17 05/01/17 Clinic Oxycodone HCl/Acetaminophen 1 tab PO Q4H PRN #180 tab 03/19/17 05/01/17 Clinic [Oxycodon-Acetaminophen 7.5-325] Temazepam 1 cap PO QHS PRN #90 cap 03/19/17 05/01/17 Clinic Fluticasone/Salmeterol [ADVAIR HFA] 2 puff INH BID #3 inh 03/31/17 05/01/17 Clinic Imiquimod [Aldara] 1 applic TOPICAL 3XW #36 sachet 03/31/17 05/01/17 Clinic Montelukast Sodium [Singulair] 10 mg ORAL QD #90 tab 03/31/17 05/01/17 Clinic Potassium Chloride [Klor-Con M20] 20 meq PO BID #180 tab 03/31/17 05/01/17 Clinic Citalopram Hydrobromide 0.5 tab PO DAILY #45 tab 04/09/17 05/01/17 Clinic [Citalopram HBr] Tizanidine HCl 1 tab PO Q8H PRN #270 tab 04/09/17 05/01/17 Clinic Cefuroxime Axetil [Ceftin] 500 mg PO BID #6 tablet 05/03/17 Rx Prednisone 10 mg PO DAILY #30 tab 05/03/17 Rx 8. Time, care, counseling and coordination of care for this discharge is less than 30 minutes. Exam - Vitals Vital Signs: Vital Signs Temperature 97.8 F Temperature Source Oral Pulse Rate [Telemetry] 93 Pulse Rate [Pulse Oximeter 97 Right] Pulse Rate 78 Respiratory Rate 22 Blood Pressure [Right Arm] 128/63 Pulse Ox 95 Oxygen Flow Rate 3 Oxygen Delivery Method Nasal Cannula Height 5 ft 4 in Weight 140 lb 9.6 oz - General General Appearance: POSITIVE: No Acute Distress, Cooperative - Head Head Exam: POSITIVE: Normal Inspection, Normocephalic, Atraumatic - Respiratory Respiratory Exam: POSITIVE: Clear to Auscultation - Bilaterally, Breathing Non Labored, Decreased Breath Sounds - Cardiovascular Cardiovascular Exam: POSITIVE: RRR, No Murmur, No Clicks, No Gallops, No Rubs, No JVD - GI/Abdominal GI/Abdominal Exam: POSITIVE: Normal Bowel Sounds, Non Tender, Non Distended, Soft - Extremities Extremities Exam: POSITIVE: No Clubbing Present, No Edema Present, No Cyanosis Present - Neurological Neurological Exam: POSITIVE: Alert, Oriented x 3, Normal Gait, No Facial Droop, Speech Intact / Clear, Moves All Extremities Equally - Psychiatric Psychiatric Exam: POSITIVE: Normal Affect, Normal Mood Data Perinent Studies: Laboratory Results 05/01/17 05/01/17 05/01/17 Range/Units 08:56 09:25 09:32 WBC 7.77 (4.8-10.8) 10^3/uL RBC 4.56 L (4.70-6.10) 10^6/uL Hgb 14.3 (14.0-18.0) g/dL Hct 42.8 (42.0-52.0) % MCV 93.9 H (80-90) FL MCH 31.4 H (27-31) PG MCHC 33.4 (33-37) g/dL RDW Std Deviation 47.7 (39-50) fL RDW Coeff of Dwight 14.2 (11.5-14.5) % Plt Count 189 (140-350) 10*3/uL MPV 9.2 (7.4-12.2) FL Immature Gran % (Auto) (0-5) % Neut % (Auto) (50-80) % Lymph % (Auto) (10-50) % [place] % (Auto) (5-15) % Eos % (Auto) (0-8) % Baso % (Auto) (0-1) % Immature Gran # (Auto) 10*3/UL Neut # (Auto) 10*3/UL Lymph # (Auto) 10*3/uL [place] # (Auto) (0.3-0.8) 10*3/UL Eos # (Auto) 10*3/UL Baso # (Auto) 10*3/UL Neutrophils % (Manual) 75 (50-80) % Band Neutrophils % 0 (0-10) % Lymphocytes % (Manual) 19 (10-50) % Monocytes % (Manual) 4 (0-12) % Eosinophils % (Manual) 2 (0-8) % Basophils % (Manual) 0 (0-1) % Metamyelocytes % Not Reportable Myelocytes % Not Reportable Promyelocytes % Not Reportable Blast Cells Not Reportable WBC Morphology Comment See comments (NORM) Plt Morphology Comment See comments (NORM) RBC Morph Comment Normal morphology (NORM) VBG pH 7.33 (7.32-7.42) VBG pCO2 43 L (45-55) mmHg VBG HCO3 23 (22-26) mmol/L VBG Base Excess -3 L (-2-2) MMOL/L Sodium 143 (135-145) meq/L Potassium 3.1 L (3.8-5.2) meq/L Chloride 102 (98-112) meq/L Carbon Dioxide 24 (23-33) meq/L Anion Gap 17 (5-20) BUN 20 (7-22) mg/dL Creatinine 0.8 (0.70-1.50) mg/dL Estimated GFR (>60 ml/min/1.73m(2)) BUN/Creatinine Ratio 25.00 H (6-20) Glucose 111 H (78-110) mg/dL Calculated Osmolality 299.0 H (267-292) mOsm/kg Lactic Acid 2.1 (0.70-2.10) MMOL/L Calcium 9.3 (8.7-10.7) mg/dL Total Bilirubin 0.4 (0.3-1.2) mg/dL AST 57 (21-57) IU/L ALT 54 (21-72) IU/L Alkaline Phosphatase 181 H (38-126) IU/L Troponin I < 0.012 (< 0.040) ng/mL Total Protein 7.9 (6.1-8.0) g/dL Albumin 4.4 (3.5-4.8) g/dL Globulin 3.5 (2.50-4.10) g/dL Albumin/Globulin Ratio 1.20 L (1.3-2.0) mg/g 05/02/17 Range/Units 04:42 WBC 7.13 (4.8-10.8) 10^3/uL RBC 3.70 L (4.70-6.10) 10^6/uL Hgb 11.4 L (14.0-18.0) g/dL Hct 34.9 L (42.0-52.0) % MCV 94.3 H (80-90) FL MCH 30.8 (27-31) PG MCHC 32.7 L (33-37) g/dL RDW Std Deviation 46.3 (39-50) fL RDW Coeff of [place] 13.9 (11.5-14.5) % Plt Count 161 (140-350) 10*3/uL MPV 9.1 (7.4-12.2) FL Immature Gran % (Auto) 0.3 (0-5) % Neut % (Auto) 77.0 (50-80) % Lymph % (Auto) 11.2 (10-50) % [place] % (Auto) 11.2 (5-15) % Eos % (Auto) 0 (0-8) % Baso % (Auto) 0.3 (0-1) % Immature Gran # (Auto) 0.02 10*3/UL Neut # (Auto) 5.49 10*3/UL Lymph # (Auto) 0.80 10*3/uL [place] # (Auto) 0.80 (0.3-0.8) 10*3/UL Eos # (Auto) 0 10*3/UL Baso # (Auto) 0.02 10*3/UL Neutrophils % (Manual) (50-80) % Band Neutrophils % (0-10) % Lymphocytes % (Manual) (10-50) % Monocytes % (Manual) (0-12) % Eosinophils % (Manual) (0-8) % Basophils % (Manual) (0-1) % Metamyelocytes % Myelocytes % Promyelocytes % Blast Cells WBC Morphology Comment Normal morphology (NORM) Plt Morphology Comment Normal morphology (NORM) RBC Morph Comment Normal morphology (NORM) VBG pH (7.32-7.42) VBG pCO2 (45-55) mmHg VBG HCO3 (22-26) mmol/L VBG Base Excess (-2-2) MMOL/L Sodium 142 (135-145) meq/L Potassium 4.4 D (3.8-5.2) meq/L Chloride 111 (98-112) meq/L Carbon Dioxide 23 (23-33) meq/L Anion Gap 8 (5-20) BUN 14 (7-22) mg/dL Creatinine 0.7 (0.70-1.50) mg/dL Estimated GFR (>60 ml/min/1.73m(2)) BUN/Creatinine Ratio 20.00 (6-20) Glucose 107 (78-110) mg/dL Calculated Osmolality 294.0 H (267-292) mOsm/kg Lactic Acid (0.70-2.10) MMOL/L Calcium 8.1 L (8.7-10.7) mg/dL Total Bilirubin 0.2 L (0.3-1.2) mg/dL AST 53 (21-57) IU/L ALT 45 (21-72) IU/L Alkaline Phosphatase 109 (38-126) IU/L Troponin I (< 0.040) ng/mL Total Protein 5.8 L (6.1-8.0) g/dL Albumin 3.2 L (3.5-4.8) g/dL Globulin 2.6 (2.50-4.10) g/dL Albumin/Globulin Ratio 1.20 L (1.3-2.0) mg/g Patient Problems - Patient Problem List (1) COPD exacerbation Current Visit: Yes Status: Acute (2) Coronary artery disease Current Visit: Yes Status: Acute Qualifiers: Coronary Disease-Associated Artery/Lesion type: [place] artery [place] vs. transplanted heart: [place] heart Associated angina: without angina Qualified Description: Coronary artery disease involving [place] coronary artery of [place] heart without angina pectoris Qualifier Code(s): (I25.10) Atherosclerotic heart disease of [place] coronary artery without angina pectoris (3) Depression Current Visit: Yes Status: Acute Qualifiers: Depression Type: unspecified Qualified Description: Depression, unspecified depression type Qualifier Code(s): (F32.9) Major depressive disorder, single episode, unspecified
== END 2017-05-03 16:16 | disposition home or self-care (01) | DRG 190 ==
LOC: ER 08:37 → SUPCPDRO 08:37 → MED/SURG 11:21
PROVIDERS: ADMIT Internal Medicine; ATTEND Internal Medicine
DX: J44.9 Chronic obstructive pulmonary disease, unspecified (principal); Z87.891 Personal history of nicotine dependence; J44.1 Chronic obstructive pulmonary disease with (acute) exacerbation; J18.9 Pneumonia, unspecified organism; I25.10 Atherosclerotic heart disease of native coronary artery without angina pectoris; F32.9 Major depressive disorder, single episode, unspecified
CPT/HCPCS: 36415; 71020; 71275; 80053; 82803; 83605; 84484; 85007; 85025; 87040; 94640; 94761; 96365; 96375; 99285; J0696; J1650; J7030; J7050; J7512; J7620

== ENCOUNTER → 2017-05-06 | Outpatient (CLI) | payer OTHER | LOC: MMPC 11:11 | PROVIDERS: ATTEND Internal Medicine | DX: J44.9 Chronic obstructive pulmonary disease, unspecified (principal) | CPT/HCPCS: 99213; G0463 ==

== ENCOUNTER 2018-07-07 17:14 | Inpatient (IN) ==
[2018-07-07] MEDS ORDERED: Sodium Chloride 0.9% 1,000 ML PRIMARY IV ONE (17:24)
[2018-07-07] MEDS ORDERED: NITROGLYCERIN 0.4 MG SL TAB (BOTTLE OF 3) SL PRN (17:24)
[2018-07-07] MEDS ORDERED: NITROGLYCERIN 0.4 MG SL TAB (BOTTLE OF 3) SL ONE (17:24)
--- NOTE | 2018-07-07 17:27 | EKG ---
[address] [address] Measurements Intervals [place] Rate: 83 P: 81 NC: 135 QRS: 20 QRSD: 73 T: 63 QT: 358 QTc: 398 Interpretive Statements SINUS RHYTHM LOW QRS VOLTAGE IN EXTREMITY LEADS [QRS DEFLECTION < 0.5 mV IN LIMB LEADS] Compared to ECG 03/08/2014 10:06:19 Low QRS voltage now present Electronically Signed On 07-10-18 07:53:23 MDT by Yusef Tejeda MD [email or web address]
[2018-07-07 17:40] LABS: BASOPHILS # (AUTO) 0.02 10*3/UL; BASOPHILS % (AUTO) 0.3 % (0-1); EOSINOPHILS # (AUTO) 0.47 10*3/UL; EOSINOPHILS % (AUTO) 6.4 % (0-8); Hematocrit [HCT] 42.9 % (42.0-52.0); Hemoglobin [HGB] 14.4 g/dL (14.0-18.0); MEAN CORPUSCULAR HGB CONC 33.6 g/dL (33-37); MEAN CORPUSCULAR VOLUME 95.3 FL (80-90); MEAN PLATELET VOLUME 9.3 FL (7.4-12.2); MONOCYTES # (AUTO) 0.67 10*3/UL (0.3-0.8); MONOCYTES % (AUTO) 9.2 % (5-15); NEUTROPHILS # (AUTO) 4.14 10*3/UL; NEUTROPHILS % (AUTO) 56.6 % (50-80)
[2018-07-07 17:41] LABS: BLOOD UREA NITROGEN 22 mg/dL (7-22); PLATELET MORPHOLOGY COMMENT NORMAL MORPHOLOGY (NORM); RBC MORPHOLOGY COMMENT NORMAL MORPHOLOGY (NORM); WBC MORPHOLOGY COMMENT NORMAL MORPHOLOGY (NORM)
[2018-07-07] MEDS ORDERED: MORPHINE SULFATE 2 MG/1 ML IVP ONE (18:00)
[2018-07-07 18:20] LABS: LIPASE 47 IU/L (23-300)
--- NOTE | 2018-07-07 18:45 | PDOC ---
Chest Pain HPI - General Chief Complaint: Chest Pain Stated Complaint: chest pain Date Seen by Provider: 07/07/18 Time Seen by Provider: 17:20 Source: Patient, Spouse Exam Limitations: POSITIVE: No limitations Treatment Prior to Arrival: REPORTS: Aspirin (Patient took 1 adult aspirin just prior to coming to the emergency room) Nurse's Notes Reviewed & Considered: Yes - History of Present Illness Initial Comments: The patient is a 78-year-old male. 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 Patient upon arrival rates the pain as an 8 on a scale of 10 in intensity. He took 1 adult aspirin just prior to arrival. Patient states that he had a myocardial infarction in 2001 and had a coronary artery stents placed. He states he stopped smoking 12 years ago but does have a history of COPD. Patient states he also took a nitroglycerin tablet 20 minutes APPRAISAL COORDINATOR. He denies any dyspnea. No syncope or near-syncope. No GI or symptoms no sensory or motor symptoms. Body Location Affected: REPORTS: Chest Timing: REPORTS: Abrupt, Constant, Getting Worse Duration: 1/2 hour Severity: Moderate Persistent/Worse since (date): 07/07/18 Persistent/Worse since (time): 16:40 Context: REPORTS: Activity (Doing paperwork) Quality: REPORTS: "Pain", Pressure, Other (Tightness) Radiation: REPORTS: None Associated Symptoms: DENIES: Nausea, Vomiting, Diaphoresis, Shortness of Breath , Hurts to Breathe, Palpitations, Productive Cough (blood), Productive Cough ( sputum), Weakness, Dizziness Modifying Factors: improves with: None Reported Similar Symptoms Previously: No Recently seen/treated/hospitalized: No Any Prior Injuries Related to Current Complaint?: No - Patient Home Medications Home Medications: Home Medications Hydrocortisone/Oatmeal/Aloe/E [Hydrocortisone 1% Cream] 28.4 gm TP QID 30 Days 03/13/12 Aspirin 1 tab PO DAILY tab 08/03/13 Ferrous Gluconate 1 tab PO BID #60 tab 08/16/14 omeprazole 40 mg capsule,delayed release 1 cap ORAL QD #90 cap 07/30/17 tiotropium bromide 18 mcg capsule with inhalation device 18 mcg IH QD #90 cap citalopram 20 mg tablet 20 mg PO QDAY #90 tab 11/06/17 albuterol sulfate HFA 90 mcg/actuation aerosol inhaler 2 puff INH Q4-6H #3 inh 12/23/17 tizanidine 4 mg tablet 4 mg PO Q8H PRN #270 tab 03/09/18 montelukast 10 mg tablet 10 mg PO QDAY #90 tab 04/17/18 potassium chloride ER 20 mEq tablet,extended release(part/cryst) 20 meq PO BID # 180 tab 04/17/18 temazepam 30 mg capsule 30 mg PO QHS PRN #90 cap 04/22/18 imiquimod 5 % topical cream packet 1 applic TOPICAL 3XW #36 sachet 06/22/18 oxycodone ER 20 mg tablet,crush resistant,extended release 12 hr 20 mg PO Q8H # 90 tab 06/30/18 oxycodone-acetaminophen 7.5 mg-325 mg tablet 1 tab PO Q4H PRN #180 tab 06/30/18 - Patient Allergies Allergies/Adverse Reactions: Allergies 3 Allergy/AdvReac Type Severity Reaction Status Date / Time meperidine HCl [From Demerol] Allergy Severe HALLUCINATI Verified 07/07/18 17:15 ONS pentazocine lactate Allergy Intermediate NAUSEA Verified 07/07/18 17:15 [From [place]] Sulfa (Sulfonamide Allergy Intermediate rash Verified 07/07/18 17:15 Antibiotics) PAIN CONTRACT AdvReac Unknown NOT Uncoded 07/07/18 17:15 APPLICABLE Past Medical History - heen HEENT History: Denies History Additional HEENT History: UPPER AND LOWER DENTURES Cardiovascular History: Angina, Previous [place] Additional Cardiovasular History: STENT PLACED Respiratory History: COPD Additional Respiratory History: RECENT URI, BRONCHITIS, TREATED WITH ABX Gastrointestinal History: Denies History Additional Gastrointestinal History: Hx of constipation. 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 History of Sexually Transmitted Diseases: No Male Reproductive History: Denies History Cancer History: Denies History In Past Year Been Physically Harmed or Verbally Threatened: No History of MDRO: No History of Other Communicable Diseases: No Tobacco Use: Former Smoker Alcohol Use: None In the Past 12 Months, Have Used or Abuse Any Substance: None Previous Surgical History: Yes Type / Date of Surgery: T&A/ BILAT CTR/ COLE/ CORONARY STENT/ MASS REMOVED FROM PANCREASE, NON CA/ ANKLE SX/ LEFT TARSAL TUNNEL/TSA Anesthesia Reactions: No Malignant Hyperthermia: No Significant Family History: No pertinent family hx Past Medical History Reviewed: Reviewed - No Changes ROS - Limitations ROS Limitations: No Limitations [place]: REPORTS: Denies Symptoms Cardiovascular: REPORTS: Chest Pain Respiratory: REPORTS: Denies Resp Symptoms Neurological: REPORTS: Denies Neuro Symptoms Gastrointestinal: REPORTS: Denies GI Symptoms Endocrine: REPORTS: Denies Symptoms Musculoskeletal: REPORTS: Denies MS Symptoms Genitourinary: REPORTS: Denies Symptoms Eyes: REPORTS: Denies Symptoms ENT: REPORTS: Denies Symptoms Skin: REPORTS: Denies Skin Symptoms Lympathic: REPORTS: Denies Lympathic Symptoms Immunologic: POSITIVE: Denies Symptoms Psychiatric: POSITIVE: Denies Psych Symptoms Chest Pain PE - General Appearance General Appearance: REPORTS: Alert, Cooperative, No Acute Distress, No Evidence of Trauma - HEENT HEENT: POSITIVE: Head Inspection Nml, Eyes Inspection Nml, Ears Inspection Nml, Nose Inspection Nml, Oral/Dental Inspect. Nml, Pharynx Inspect. Nml, PERRL, EOMI - Neck Neck: REPORTS: Normal Inspection, No Carotid Bruit - Respiratory Respiratory: REPORTS: No Respiratory Distress, Breath Sounds Normal, Chest Non- Tender - Cardiovascular Cardiovascular: REPORTS: Regular Rate and Rhythm, Heart Sounds Normal, Equal Pulses, Strong Pulses, No Murmur, No Gallop, No Friction Rub, No JVD Peripheral Pulses: Radial (R): 2+, Radial (L): 2+ - Abdomen Abdomen: Soft: (All Quadrants), Normal Bowel Sounds: (All Quadrants), Denies Tenderness: (All Quadrants), No Splenomegaly: (All Quadrants), No Hepatomegaly: (All Quadrants), No Guarding: (All Quadrants), No Rebound: (All Quadrants), No Palpable Pulse: (All Quadrants), No Palpabale Mass: (All Quadrants), No Distention: (All Quadrants), No Rigidity: (All Quadrants) - Skin Skin: REPORTS: Intact, Normal For Race, Warm, Dry, No Rash - Extremities Extremity: Non-Tender: (All Extremities), Normal ROM: (All Extremities), Normal Inspection: (All Extremities) - Neurological / Psychological Neurological: POSITIVE: Affect Apporpriate, Oriented X3, summer internship Normal As Tested, Motor Normal, Sensation Normal Images - Complete Complete: 1 - Area described chest pain and pressure Chest Pain Progress - Results Reviewed by me Xrays/CTs/US Reviewed by me: Yes Discussed with Radiologist: Yes Radiology Findings: Portable chest x-ray normal by my interpretation except for incidentally noted left shoulder replacement; radiologist interpretation pending Lab Results Reviewed by Me: Yes (d-dimer and troponin normal. All labs normal except for somewhat elevated ) CBC and BMP: 07/07/18 17:18 07/07/18 17:18 Lab Results:: Laboratory Results 3 07/07/18 07/07/18 07/07/18 17:18 17:18 17:18 WBC 7.31 RBC 4.50 L Hgb 14.4 Hct 42.9 MCV 95.3 H MCH 32.0 H MCHC 33.6 RDW Std Deviation 45.5 RDW Coeff of [place] 13.3 Plt Count 201 MPV 9.3 Immature Gran % (Auto) 0.1 Neut % (Auto) 56.6 Lymph % (Auto) 27.4 [place] % (Auto) 9.2 Eos % (Auto) 6.4 Baso % (Auto) 0.3 Immature Gran # (Auto) 0.01 Neut # (Auto) 4.14 Lymph # (Auto) 2.00 [place] # (Auto) 0.67 Eos # (Auto) 0.47 Baso # (Auto) 0.02 WBC Morphology Comment Normal morphology Plt Morphology Comment Normal morphology RBC Morph Comment Normal morphology D-Dimer 0.44 Sodium 138 Potassium 4.1 Chloride 101 Carbon Dioxide 30 Anion Gap 7 BUN 22 Creatinine 0.8 BUN/Creatinine Ratio 27.50 H Glucose 91 Calculated Osmolality 288.0 Calcium 9.1 Total Bilirubin 0.5 AST 160 H ALT 97 H Alkaline Phosphatase 131 H CK-MB (CK-2) Troponin I Total Protein 7.1 Albumin 4.0 Globulin 3.1 Albumin/Globulin Ratio 1.20 L Amylase Lipase 3 07/07/18 07/07/18 17:18 17:18 WBC RBC Hgb Hct MCV MCH MCHC RDW Std Deviation RDW Coeff of [place]ight Plt Count MPV Immature Gran % (Auto) Neut % (Auto) Lymph % (Auto) [place] % (Auto) Eos % (Auto) Baso % (Auto) Immature Gran # (Auto) Neut # (Auto) Lymph # (Auto) [place] # (Auto) Eos # (Auto) Baso # (Auto) WBC Morphology Comment Plt Morphology Comment RBC Morph Comment D-Dimer Sodium Potassium Chloride Carbon Dioxide Anion Gap BUN Creatinine BUN/Creatinine Ratio Glucose Calculated Osmolality Calcium Total Bilirubin AST ALT Alkaline Phosphatase CK-MB (CK-2) 1.24 Troponin I < 0.012 Total Protein Albumin Globulin Albumin/Globulin Ratio Amylase 88 Lipase 47 EKG Interpreted/Reviewed By Me:: Yes (normal sinus rhythm; somewhat low voltage in leads to 3 aVF and V1) EKG Interpretation:: POSITIVE: Normal Sinus Rhythm, Normal Rate, Normal Intervals, Normal [place], Normal QRS, Normal ST/T - Patient's Progress Pain Medication Addressed: POSITIVE: Yes (Patient given nitroglycerin 0.4 mg sublingually with reduction in his pain. Patient then given 2 mg of morphine with resolution of his pain.) School/Work Release Addressed: POSITIVE: Not Applicable Re-Examine Time: 18:40 Re-Examine Comment: Patient's pain resolved. Vital signs remained stable. Results of portable chest x-ray, electrocardiogram and laboratory studies discussed with patient and his . Patient is admitted to hospitalist on rule out protocol. Status: POSITIVE: Improved, Re-Examined Quality Measure Initiative: CP/AMI: POSITIVE: EKG, ASA - Consult Consult (If Yes, Name of Consulting MD & Time Called): Yes (Dr. Barnes, hospitalist, [id number]) Consulting MD will see pt:: POSITIVE: [facility] [place] Admit Counseled: POSITIVE: Patient, Family, RE: Lab Results, RE: Radiology Results, RE : DX, RE: Need for F/U Patient Care Time - Estimated PCT Patient Care Time (In Minutes): 50 Vital Signs - Recent Vital Signs Vital Signs: Vital Signs (Last 8 hours) Temp Pulse Pulse Resp BP Pulse Ox 07/07/18 17:14 96.9 F 84 84 18 118/79 96 - VS Reviewed Vital Signs Reviewed: Yes Discharge Clinical Impression: Chest pain Discharge Disposition: Admit to Inpatient Condition: Fair Follow Up With: KOURTNEY ROLLINS [Primary Care Provider] - Date Decision to Admit to Inpatient: 07/07/18 Time Decision to Admit to Inpatient: 18:40
[2018-07-07] MEDS ORDERED: LIDOCAINE W/ SODIUM BICARB 0.5 ML SYR SUBD PRN (19:53)
[2018-07-07] MEDS ORDERED: tiZANidine Tab 4 MG TAB PO PRN (19:53)
[2018-07-07] MEDS ORDERED: CALCIUM CARBONATE 500 MG (TUMS) CHEWABLE TABLET PO PRN (19:53)
[2018-07-07] MEDS ORDERED: Non-Formulary Drug (Temazepam [Temazepam] 30 MG) PO PRN (19:53)
[2018-07-07] MEDS: POTASSIUM CHLORIDE 20 MEQ TAB PO SCH (20:55)
[2018-07-07] MEDS: HEPARIN 5000 UNIT/1 ML SUBCUT SCH (20:55)
[2018-07-07] MEDS: FERROUS GLUCONATE 324 MG TABLET PO SCH (20:55)
[2018-07-07] MEDS: oxyCODONE ER Tab 20 MG TAB PO SCH (20:55)
--- NOTE | 2018-07-07 20:57 | PDOC ---
HPI - History of Present Illness History of Present Illness: This very nice 78-year-old gentleman with past medical history is significant for chronic arthritis on chronic pain meds developed the sudden onset of chest pain described this pain as 8 out of 10 when he hit the ER he took one aspirin at home he has a history of [place] in 2001 had stents placed as well. History of smoking quit 10 years ago he is comfortable at present time no chest pain and is back to his normal self he will be admitted for rule out and stress test in sitting his high risk factors of previous [place] Past Medical History Medical History: Coronary artery disease with 1 stent, COPD, depression Tobacco Use: Former Smoker In the Past 12 Months, Have Used or Abuse Any of the Following Substance: None Medication / Allergies Home Medications: Home Medications 3 Medication Instructions Recorded Confirmed Type Hydrocortisone/Oatmeal/Aloe/E 28.4 gm TP QID 30 Days 03/13/12 07/07/18 History [Hydrocortisone 1% Cream] Aspirin 1 tab PO DAILY tab 08/03/13 07/07/18 History Ferrous Gluconate 1 tab PO BID #60 tab 08/16/14 07/07/18 History omeprazole 40 mg capsule,delayed 1 cap ORAL QD #90 cap 07/30/17 07/07/18 Rx release tiotropium bromide 18 mcg capsule 18 mcg IH QD #90 cap 07/30/17 07/07/18 Rx with inhalation device citalopram 20 mg tablet 20 mg PO QDAY #90 tab 11/06/17 07/07/18 Rx albuterol sulfate HFA 90 2 puff INH Q4-6H #3 inh 12/23/17 07/07/18 Rx mcg/actuation aerosol inhaler tizanidine 4 mg tablet 4 mg PO Q8H PRN #270 tab 03/09/18 07/07/18 Rx montelukast 10 mg tablet 10 mg PO QDAY #90 tab 04/17/18 07/07/18 Rx potassium chloride ER 20 mEq 20 meq PO BID #180 tab 04/17/18 07/07/18 Rx tablet,extended release(part/cryst) temazepam 30 mg capsule 30 mg PO QHS PRN #90 cap 04/22/18 07/07/18 Rx fluticasone 100 mcg-umeclid 62.5 1 inh INH DAILY #6 Samples 04/23/18 07/07/18 Sample mcg-vilant 25 mcg powd for inhalation imiquimod 5 % topical cream packet 1 applic TOPICAL 3XW #36 sachet 06/22/18 Rx oxycodone ER 20 mg tablet,crush 20 mg PO Q8H #90 tab 06/30/18 07/07/18 Rx resistant,extended release 12 hr oxycodone-acetaminophen 7.5 mg-325 1 tab PO Q4H PRN #180 tab 06/30/18 07/07/18 Rx mg tablet Allergies/Adverse Reactions: Allergies 3 Allergy/AdvReac Type Severity Reaction Status Date / Time meperidine HCl [From Demerol] Allergy Severe HALLUCINATI Verified 07/07/18 20:03 ONS pentazocine lactate Allergy Intermediate NAUSEA Verified 07/07/18 20:03 [From Talwin] Sulfa (Sulfonamide Allergy Intermediate rash Verified 07/07/18 20:03 Antibiotics) PAIN CONTRACT AdvReac Unknown NOT Uncoded 07/07/18 20:03 APPLICABLE Review of Systems - Review of Systems All Systems: Reviewed & No Additional Complaints Except as Stated - Respiratory Respiratory: DENIES: Negative System Review, Cough, Sputum, Dyspnea At Rest, Dyspnea with Exertion, Pleuritic Pain, Hemoptysis, Wheezing, Other, See HPI - Cardiovascular Cardiovascular: REPORTS: Chest Pain - Gastrointestinal Gastrointestinal / Abdominal: DENIES: Negative System Review, Nausea, Vomiting, Diarrhea, Constipation, Abdominal Pain, Bloody Stool, Poor Appetite, Heartburn, Regurgitation, Bloating, Lactose Intolerance, Melena, Bright Red Blood per Rectum, Other, See HPI Exam - Vitals Vital Signs: Vital Signs Temperature 97.4 F Temperature Source Temporal Artery Scan Pulse Rate [Pulse Oximeter 69 Right] Pulse Rate 84 Respiratory Rate 16 Blood Pressure [Left Arm] 105/65 Pulse Ox 96 Oxygen Flow Rate 2 Oxygen Delivery Method Nasal Cannula Height 5 ft 5 in Weight 139 lb 8 oz - General General Appearance: No Acute Distress, Cooperative - Respiratory Respiratory Exam: POSITIVE: Clear to Auscultation - Bilaterally, Breathing Non Labored, Normal To Percussion, Normal to Percussion and Palpation - Cardiovascular Cardiovascular Exam: POSITIVE: RRR, No Murmur, No Clicks, No Gallops, No Rubs, PMI Non-Displaced - GI/Abdominal GI/Abdominal Exam: POSITIVE: Normal Bowel Sounds, Non Tender, Non Distended, Soft, No Masses, No Hepatomegaly, No Splenomegaly, No Organomegaly - Extremities Extremities Exam: POSITIVE: No Clubbing Present, No Edema Present, No Cyanosis Present Results - Labs CBC and BMP: 07/07/18 17:18 07/07/18 17:18 Assessment and Plan - Patient Problems (1) Chest pain Current Visit: Yes Status: Acute Code(s): R07.9 - Chest pain, unspecified (2) Coronary artery disease Current Visit: No Status: Acute Code(s): I25.10 - Atherosclerotic heart disease of [place] coronary artery without angina pectoris Qualifiers: - Assessment / Plan Additional Assessment/Plan Details: #1 chest pain in the setting of coronary artery disease we will rule out with serial enzymes order Lexiscan stress test for a.m. Continue current meds for other medical issues
[2018-07-07] MEDS: ALBUTEROL SULFATE 2.5 MG/3 ML NEB PRN (23:05)
[2018-07-08] MEDS: oxyCODONE/APAP 7.5/325 Tab 1 TAB TAB PO PRN ×3 (01:35→23:11)
[2018-07-08] MEDS: oxyCODONE ER Tab 20 MG TAB PO SCH ×3 (04:55→19:10)
[2018-07-08] MEDS: HEPARIN 5000 UNIT/1 ML SUBCUT SCH ×3 (04:55→19:10)
[2018-07-08 06:07] LABS: CHOL/HDL RATIO 2.98 RATIO (0-4.0)
[2018-07-08] MEDS: ALBUTEROL SULFATE 2.5 MG/3 ML NEB PRN ×2 (06:44→23:52)
[2018-07-08] MEDS: OMEPRAZOLE 20 MG CAPSULE PO SCH (07:23)
--- NOTE | 2018-07-08 07:42 | DI ---
XR CXR 1VW,07/07/2018 5:24 PM: Clinical History: Chest pain Previous Exam: None at this facility. Findings: A single frontal radiograph of the chest is obtained, and demonstrate clear lungs. The cardiomediasti num and bony thorax are unremarkable except for postsurgical changes of the left shoulder consistent with a total shoulder arthroplasty. Impression: No acute cardiopulmonary disease.
[2018-07-08] MEDS: Montelukast Tab 10 MG TAB PO SCH (09:15)
[2018-07-08] MEDS: POTASSIUM CHLORIDE 20 MEQ TAB PO SCH ×2 (09:15→20:11)
[2018-07-08] MEDS: CITALOPRAM 20 MG TABLET PO SCH (09:15)
[2018-07-08] MEDS: ASPIRIN 325 MG TABLET PO SCH (09:15)
[2018-07-08] MEDS: FERROUS GLUCONATE 324 MG TABLET PO SCH ×2 (09:15→20:11)
--- NOTE | 2018-07-08 10:41 | PDOC(PROG) ---
Interval History: Doing well no chest pain Objective : Data - Labs CBC and BMP: 07/07/18 17:18 07/07/18 17:18 Objective : Exam - Respiratory Respiratory Exam: Clear to Auscultation - Bilaterally, Breathing Non Labored, Normal To Percussion, Normal to Percussion and Palpation - Cardiovascular Cardiovascular Exam: RRR, No Murmur, No Clicks, No Gallops, No Rubs, PMI Non- Displaced - GI/Abdominal GI/Abdominal Exam: Normal Bowel Sounds, Non Tender, Non Distended, Soft, No Masses, No Hepatomegaly, No Splenomegaly, No Organomegaly Assessment and Plan - Patient Problems (1) Chest pain Current Visit: Yes Status: Acute Comment: Resolved he is getting a stress test the first part today and tomorrow morning at 9:30 Code(s): R07.9 - Chest pain, unspecified (2) Coronary artery disease Current Visit: No Status: Acute Code(s): I25.10 - Atherosclerotic heart disease of [place] coronary artery without angina pectoris Qualifiers:
[2018-07-08] MEDS ORDERED: LORazepam 1 MG TABLET PO ONE (13:40)
[2018-07-09] MEDS: oxyCODONE ER Tab 20 MG TAB PO SCH ×3 (04:37→20:13)
[2018-07-09] MEDS: HEPARIN 5000 UNIT/1 ML SUBCUT SCH ×3 (04:37→20:13)
[2018-07-09] MEDS: Montelukast Tab 10 MG TAB PO SCH (10:24)
[2018-07-09] MEDS: POTASSIUM CHLORIDE 20 MEQ TAB PO SCH ×2 (10:24→20:13)
[2018-07-09] MEDS: ASPIRIN 325 MG TABLET PO SCH (10:24)
[2018-07-09] MEDS: OMEPRAZOLE 20 MG CAPSULE PO SCH (10:24)
[2018-07-09] MEDS: CITALOPRAM 20 MG TABLET PO SCH (10:24)
[2018-07-09] MEDS: FERROUS GLUCONATE 324 MG TABLET PO SCH ×2 (10:24→20:13)
--- NOTE | 2018-07-09 10:57 | STRESSTEST ---
[facility] [place] Interpretive Statements 78 YO male with history of CAD, prior Hx of smoking, no HTN, , no DM and no family history of CAD, and no cholesterol problems. presented with chest pain, ruled out for ME. Monserrat scan stress test protocol started with resting phase yesterday. stress done today. resting EKG is NSR. chemical stress portion, one PVC, mild hypotension that resolved and symptoms of shortness of breath that resolved with coffee. Plan: images later today, radiology to read images. [email or web address]
[2018-07-09] MEDS ORDERED: LORazepam 2 MG/1 ML VIAL IVP ONE (12:17)
--- NOTE | 2018-07-09 14:06 | DI ---
2 DAY LEXISCAN STRESS & REST MYOCARDIAL PERFUSION SCANS, 07/08/2018 11:00 AM : Clinical History: History of stents with chest pain Previous Exam: None at this facility. The patient was stressed by Dr. Mark Andrade The standard Lexiscan protocol was used. Please see the Doctor's report. At the designated time, 36.6 mCi of 99Tc-sestimibi was injected IV. Stress gated tomograms were acquired within one hour of the i njection. For the resting scans, 32.4 mCi was injected IV and resting gated tomograms were acquired in similar fashion. Stress scans were performed on July 08, 2018; the resting scans were performed on July 09, 2018. Quantitative and qualitative analyses were performed. Quantitative analysis was performed with the [place] [facility] [id number] protocols. Very low dose limited CT scans of the chest are o btained through the level of the heart for attenuation correction of the gated stress and rest cardia c SPECT data. Non-attenuated and attenuated scans were processed for review, and the attenuated scans were used for final interpretation of this study. Review of the raw data images and quality review specialist files indicate that these series of examinations ar e of excellent quality. Stress and rest left ventricular chamber sizes are normal. Stress and rest LV EF are 71 % and 81 %, respectively. Evidence of ischemia. Transient ischemic dilatation ratio is 0.96, with a normal range up to 1.22 for patients str essed with the Geremias protocol and up to 1.33 for patients stressed with the Lexiscan protocol. The very low dose CT scans through the level of the heart demonstrate multiple coronary artery calcif ications. There is mild diffuse COPD. Incidental note is made of pneumobilia. Reading: No evidence of ischemia. Normal wall motion and normal ejection fraction.
--- NOTE | 2018-07-09 17:38 | DI ---
CT Abdomen/Pelvis W Contrast,07/09/2018 4:25 PM: Clinical History: Pneumobilia and elevated liver enzymes with fever. Previous Exam: CT chest performed May 01, 2017 Findings: Multiple helically acquired CT images are obtained through the abdomen and pelvis following the admin istration of 75 cc of Isovue 300. The lung bases are clear. There is a small hiatal hernia. There is pneumobilia noted within the left lobe of the liver. The pancreas contains a few calcifications. The spleen is unremarkable. The adrenals are unremarkable. The urinary bladder is unremarkable. There is prominence of the prostate. There is no free air nor free fluid. The appendix is normal. There is some prominence of the intrahepatic biliary ducts as well as the common bile duct. The pancr eatic duct is not seen. There are fluid density masses within the right lobe of the liver. The largest of these measures 3.6 x 2.6 cm. This measured a density of 20 Hounsfield units. This fluid collection was seen on the CT ch est from 2016, but was much larger at that time. There is also some dilation of the common hepatic duct. There are a few subcentimeter hypodensities too small to characterize. Peripheral vascular calcifications are noted. There is mild levoscoliosis of the mid lumbar spine raul tered at the L2/3 level. Mild degenerative changes are seen of the hips. The urinary bladder is unremarkable. Diffuse degenerative changes of the spine are also noted. Impression: Large fluid collection within the right lobe of the liver measuring 20 Hounsfield units. This was als o seen on CT chest from May 01, 2017, but has decreased in size significantly since the prior exam. This could represent a biloma. Interval increasing dilation of the intrahepatic ducts and the common hepatic ducts without dilation of the distal common bile duct.
[2018-07-09 17:40] LABS: BASOPHILS # (AUTO) 0.01 10*3/UL; BASOPHILS % (AUTO) 0.1 % (0-1); EOSINOPHILS # (AUTO) 0.07 10*3/UL; EOSINOPHILS % (AUTO) 0.8 % (0-8); Hematocrit [HCT] 38.3 % (42.0-52.0); Hemoglobin [HGB] 12.7 g/dL (14.0-18.0); LYMPHOCYTES # (AUTO) 1.24 10*3/uL; MEAN CORPUSCULAR HGB CONC 33.2 g/dL (33-37); MEAN CORPUSCULAR VOLUME 96.5 FL (80-90); MEAN PLATELET VOLUME 9.4 FL (7.4-12.2); MONOCYTES # (AUTO) 0.77 10*3/UL (0.3-0.8); MONOCYTES % (AUTO) 8.8 % (5-15); NEUTROPHILS # (AUTO) 6.65 10*3/UL; NEUTROPHILS % (AUTO) 75.9 % (50-80); RED BLOOD COUNT 3.97 10^6/uL (4.70-6.10)
[2018-07-09 17:43] LABS: PLATELET MORPHOLOGY COMMENT NORMAL MORPHOLOGY (NORM); RBC MORPHOLOGY COMMENT NORMAL MORPHOLOGY (NORM); WBC MORPHOLOGY COMMENT NORMAL MORPHOLOGY (NORM)
[2018-07-09 17:50] LABS: BLOOD UREA NITROGEN 16 mg/dL (7-22); BUN/CREATININE RATIO 22.85 (6-20); SERUM ALBUMIN 3.4 g/dL (3.5-4.8)
[2018-07-09] MEDS: ALBUTEROL SULFATE 2.5 MG/3 ML NEB PRN (18:29)
[2018-07-09] MEDS: oxyCODONE/APAP 7.5/325 Tab 1 TAB TAB PO PRN (20:17)
--- NOTE | 2018-07-09 21:40 | PDOC(PROG) ---
Date of Service: 07/09/18 Time of Service: 21:34 Interval History: No complaints of chest pain, nausea or vomiting, shortness of breath. Seen several times through the day. We had an incidental finding of pneumobilia on the stress test. I did a CT scan of the abdomen and pelvis and spoke with 3 surgeons and an infectious disease specialist regarding this situation. 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 You can see several air pockets in the left lobe of the liver that looked more extensive than on prior chest CT scans. I spoke with the pancreatic non destructive testing specialist regarding this and we will arrange an outpatient appointment since this is been present since at least 2013 and also get an MRI scan of the abdomen.) Objective : Exam - General General Appearance: No Acute Distress, Cooperative Additional General Exam Details: Vital Signs - Last Taken Temperature 97.4 F 07/09/18 21:00 Pulse Rate 84 07/09/18 21:00 Respiratory Rate 20 07/09/18 21:00 Blood Pressure 128/77 07/09/18 21:00 Pulse Ox 97 07/09/18 21:00 Afebrile today - Eye Eye Exam: No Scleral Icterus - ENT ENT Exam: Mucous Membranes Moist - Respiratory Respiratory Exam: Breathing Non Labored, Decreased Breath Sounds, Coarse Breath Sounds - Cardiovascular Cardiovascular Exam: RRR, No Murmur, No Clicks, No Gallops, No Rubs, No JVD - GI/Abdominal GI/Abdominal Exam: Normal Bowel Sounds, Non Tender, Non Distended, Soft, No Hepatomegaly, No Splenomegaly - Extremities Extremities Exam: No Clubbing Present, No Edema Present, No Cyanosis Present - Neurological Neurological Exam: Alert, Oriented x 3, No Facial Droop, Speech Intact / Clear, Moves All Extremities Equally - Psychiatric Psychiatric Exam: Normal Affect, Normal Mood Assessment and Plan - Patient Problems (1) Pneumobilia Current Visit: Yes Status: Acute Code(s): K83.8 - Other specified diseases of biliary tract (2) Chronic obstructive lung disease Current Visit: No Status: Acute Code(s): J44.9 - Chronic obstructive pulmonary disease, unspecified (3) Coronary artery disease Current Visit: No Status: Acute Code(s): I25.10 - Atherosclerotic heart disease of [place] coronary artery without angina pectoris Qualifiers: Coronary Disease-Associated Artery/Lesion type: [place] artery [place] vs. transplanted heart: [place] heart Associated angina: without angina Qualified Code(s): I25.10 - Atherosclerotic heart disease of [place] coronary artery without angina pectoris (4) Chest pain Current Visit: Yes Status: Resolved Code(s): R07.9 - Chest pain, unspecified - Assessment / Plan Additional Assessment/Plan Details: The presence of the pneumobilia may be a possible incidental finding, but could also represent gas formation from an ascending cholangitis. It does appear progressive since 2014. It could also be vendor representatives of some sort of cancer. I spoke with several experts, including infectious disease, and at this time I will hold off on antibiotics, but watch and check another CBC and Metabolic panel tomorrow. In addition I have blood cultures drawn which are pending. I spoke with the pancreatic surgeon specialist in the [place] area and he suggests that the patient see him in the office to review films. I would agree with this. It could be that the patient needs an ERCP to explore further. We' ll get abdominal MRI with and without contrast tomorrow of the abdomen. We'll get all films on disc including CT of chest scans from 2016 in 2013 for the patient to take down to his clinic visit. Check lipase and amylase. I spoke with the patient regarding the nature of this clinical presentation. Based on the pneumobilia, the patient really needs additional workup that will require an inpatient stay. My hope is to be able to discharge tomorrow. This will all be pending results of MRI abdomen and laboratory findings as well. - Time/Visit Time Spent With Patient: Greater Than 35 Mintues (With over 50% of the time counseling and coordination care)
[2018-07-09] MEDS ORDERED: LORazepam 2 MG/1 ML VIAL IVP PRN (22:13)
[2018-07-10] MEDS: HEPARIN 5000 UNIT/1 ML SUBCUT SCH ×2 (04:25→12:07)
[2018-07-10] MEDS: oxyCODONE ER Tab 20 MG TAB PO SCH ×2 (04:25→12:07)
[2018-07-10] MEDS: ALBUTEROL SULFATE 2.5 MG/3 ML NEB PRN (06:23)
[2018-07-10 09:31] LABS: BASOPHILS # (AUTO) 0.02 10*3/UL; BASOPHILS % (AUTO) 0.3 % (0-1); EOSINOPHILS # (AUTO) 0.09 10*3/UL; EOSINOPHILS % (AUTO) 1.5 % (0-8); Hematocrit [HCT] 39.8 % (42.0-52.0); Hemoglobin [HGB] 13.1 g/dL (14.0-18.0); LYMPHOCYTES # (AUTO) 0.99 10*3/uL; MEAN CORPUSCULAR HEMOGLOBIN 31.5 PG (27-31); MEAN CORPUSCULAR HGB CONC 32.9 g/dL (33-37); MEAN CORPUSCULAR VOLUME 95.7 FL (80-90); MEAN PLATELET VOLUME 9.1 FL (7.4-12.2); MONOCYTES # (AUTO) 0.76 10*3/UL (0.3-0.8); MONOCYTES % (AUTO) 12.7 % (5-15); NEUTROPHILS # (AUTO) 4.12 10*3/UL; NEUTROPHILS % (AUTO) 68.8 % (50-80); RED BLOOD COUNT 4.16 10^6/uL (4.70-6.10)
[2018-07-10 09:40] LABS: BLOOD UREA NITROGEN 18 mg/dL (7-22); SERUM ALBUMIN 3.6 g/dL (3.5-4.8)
[2018-07-10 09:52] LABS: PLATELET MORPHOLOGY COMMENT NORMAL MORPHOLOGY (NORM); RBC MORPHOLOGY COMMENT NORMAL MORPHOLOGY (NORM); WBC MORPHOLOGY COMMENT NORMAL MORPHOLOGY (NORM)
[2018-07-10] MEDS: OMEPRAZOLE 20 MG CAPSULE PO SCH (12:07)
[2018-07-10] MEDS: CITALOPRAM 20 MG TABLET PO SCH (12:07)
[2018-07-10] MEDS: ASPIRIN 325 MG TABLET PO SCH (12:07)
[2018-07-10] MEDS: Montelukast Tab 10 MG TAB PO SCH (12:08)
[2018-07-10] MEDS: FERROUS GLUCONATE 324 MG TABLET PO SCH (12:08)
[2018-07-10] MEDS: POTASSIUM CHLORIDE 20 MEQ TAB PO SCH (12:08)
[2018-07-10 12:16] VITALS: BP 117/81; RESP 20; TEMP 97.6
--- NOTE | 2018-07-10 14:02 | DI ---
MRI Abdomen WWO Contrast,07/10/2018 7:00 AM: Clinical History: Pneumobilia and elevated liver enzymes. Previous Exam: CT abdomen pelvis performed July 09, 2018 Findings: Multiplanar MR images are obtained through the abdomen and pelvis both before and after the intraveno us demonstration of 12 mL of yield this contrast. There is some mild prominence of the biliary ducts. The mass noted within the right lower liver on the CT scan appears completely cystic on this exam yolanda suring 3.5 x 2.3 x 2.7 cm. The gallbladder is surgically absent. The spleen is probably fatty replaced, but there is no pancreatic duct dilation, and there is no panc reatic mass. There is stable prominence of the left and right hepatic ducts. The major vascular structures are unremarkable. Common bile duct appears grossly normal without filling defect nor truncation to suggest a stone alth ough evaluation is somewhat limited. There is mild prominence of the prostate. Mild degenerative changes of the spine are seen. Impression: 1. Cystic mass within the right lobe of the liver has decreased in size since the CT chest performed May 01, 2017. 2. There is no other intrahepatic mass identified. 3. Prominence of the left and right hepatic ducts stable from the prior exams.
[2018-07-10 15:03] VITALS: O2SAT 91
--- NOTE | 2018-07-10 16:02 | DCSUMMARY ---
Hospitalization Summary Admit Date: 07/07/2018 Discharge Date: 07/10/18 Primary Diagnosis:: pneumobilia Secondary Diagnosis:: Chest pain, resolved atypical and possibly related to pneumobilia versus GERD Hospital Course: This very pleasant 68 year male that was admitted in the setting of acute onset of substernal chest pain. He ruled out for myocardial infarction and a Lexiscan stress test was done. Although it did note calcifications, there was no ischemia and ejection fractions and wall motion appeared okay. There was a incidental finding of pneumobilia. The patient's liver enzymes were elevated and he had low-grade temperatures so I did get a CT scan of the abdomen and pelvis and spoke to a pancreatic clinical services specialist in [place] regarding the patient's case. The pneumobilia appeared to be somewhat progressive in the left lobe of the liver. 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 I did an abdominal MRI scan to look for any potential common bile duct obstruction as the patient had a cholecystectomy, open, in 1998 or so. At that time he was told he had a benign mass at the neck of the gallbladder that was removed. There was no evidence of any mass outside of the biloma issue on imaging during this hospital stay. We were able to arrange an outpatient appointment for the patient to have further discussion as to whether or not an ERCP or further evaluation of the pneumobilia would be indicated. The patient also had complaints of back pain and muscle spasm. Review of x-ray shows that he probably has osteoporosis and that he has an anterolisthesis at L4 and L5 and some wedging deformities in the thoracic spine without fractures. Given these findings, and knowing that therapy (physical therapy) has not worked in terms of helping the patient's back pain and muscle dysfunction, I ordered MRI scans of the cervical, lumbar, and thoracic spine. The patient had been told he had multiple sclerosis in the past, but he noticed no difference on interferon therapy and stopped that therapy and there were no spots on his MRI scan of his brain according to his history. The patient did not exhibit any infectious symptoms outside of a low-grade temperature of 100F. White blood cell count was normal, and fevers completely resolved. Liver enzymes remained elevated but no change to show any evidence of obstruction and so I held off on antibiotic therapy. Today, no completes of chest pain, shortness breath, nausea or vomiting. No abdominal pain. The patient would like to go home. Assessment and Plan: 1. As per discharge assessments noted 2. Disposition: Patient is discharged home. 3. Condition on discharge, stable and improved. 4. Diet: regular diet 5. Activities: resume normal activities 6. Follow-Up: 1. Dr. Redding in about 3 weeks to review MRI scan and results of surgery consultation 2. Dr. Diaz as an outpatient in 1-2 weeks 7. Medications at the Time of Discharge: Home Medications 3 Medication Instructions Recorded Confirmed Type Hydrocortisone/Oatmeal/Aloe/E 28.4 gm TP QID 30 Days 03/13/12 07/07/18 History [Hydrocortisone 1% Cream] Aspirin 1 tab PO DAILY tab 08/03/13 07/07/18 History Ferrous Gluconate 1 tab PO BID #60 tab 08/16/14 07/07/18 History omeprazole 40 mg capsule,delayed 1 cap ORAL QD #90 cap 07/30/17 07/07/18 Rx release tiotropium bromide 18 mcg capsule 18 mcg IH QD #90 cap 07/30/17 07/07/18 Rx with inhalation device citalopram 20 mg tablet 20 mg PO QDAY #90 tab 11/06/17 07/07/18 Rx albuterol sulfate HFA 90 2 puff INH Q4-6H #3 inh 12/23/17 07/07/18 Rx mcg/actuation aerosol inhaler tizanidine 4 mg tablet 4 mg PO Q8H PRN #270 tab 03/09/18 07/07/18 Rx montelukast 10 mg tablet 10 mg PO QDAY #90 tab 04/17/18 07/07/18 Rx potassium chloride ER 20 mEq 20 meq PO BID #180 tab 04/17/18 07/07/18 Rx tablet,extended release(part/cryst) temazepam 30 mg capsule 30 mg PO QHS PRN #90 cap 04/22/18 07/07/18 Rx fluticasone 100 mcg-umeclid 62.5 1 inh INH DAILY #6 Samples 04/23/18 07/07/18 Sample mcg-vilant 25 mcg powd for inhalation imiquimod 5 % topical cream packet 1 applic TOPICAL 3XW #36 sachet 06/22/18 Rx oxycodone ER 20 mg tablet,crush 20 mg PO Q8H #90 tab 06/30/18 07/07/18 Rx resistant,extended release 12 hr oxycodone-acetaminophen 7.5 mg-325 1 tab PO Q4H PRN #180 tab 06/30/18 07/07/18 Rx mg tablet LORazepam Tab [Ativan Tab] 1 mg PO ONCE #2 tab 07/10/18 Rx 8. Time, care, counseling and coordination of care for this discharge is greater than 30 minutes. Exam - Vitals Vital Signs: Vital Signs Temperature 97.6 F Temperature Source Temporal Artery Scan Pulse Rate [Apical] 70 Pulse Rate [Pulse Oximeter 84 Right] Pulse Rate 84 Respiratory Rate 20 Blood Pressure [Left Arm] 117/81 Pulse Ox 91 Oxygen Flow Rate 3 Oxygen Delivery Method Nasal Cannula Height 5 ft 5 in Weight 136 lb 12.8 oz - General General Appearance: No Acute Distress, Cooperative - Eye Eye Exam: POSITIVE: No Scleral Icterus - ENT ENT Exam: POSITIVE: Mucous Membranes Moist - Respiratory Respiratory Exam: POSITIVE: Clear to Auscultation - Bilaterally, Breathing Non Labored - Cardiovascular Cardiovascular Exam: POSITIVE: RRR, No Murmur, No Clicks, No Gallops, No Rubs, No JVD - GI/Abdominal GI/Abdominal Exam: POSITIVE: Normal Bowel Sounds, Non Tender, Non Distended, Soft - Extremities Extremities Exam: POSITIVE: No Edema Present, No Cyanosis Present - Back Back Exam: POSITIVE: Normal Inspection, Full ROM, No CVA Tenderness Additional Back Exam Details: There is no spinous process tenderness. Tissue is somewhat boggy which does suggest some muscle dysfunction - Neurological Neurological Exam: POSITIVE: Alert, Oriented x 3, No Facial Droop, Speech Intact / Clear, Moves All Extremities Equally Data Peritnent Studies: Laboratory Results 07/09/18 07/09/18 07/09/18 Range/Units 17:10 17:10 17:10 WBC 8.76 (4.8-10.8) 10^3/uL RBC 3.97 L (4.70-6.10) 10^6/uL Hgb 12.7 L (14.0-18.0) g/dL Hct 38.3 L (42.0-52.0) % MCV 96.5 H (80-90) FL MCH 32.0 H (27-31) PG MCHC 33.2 (33-37) g/dL RDW Std Deviation 48.2 (39-50) fL RDW Coeff of Dwight 13.9 (11.5-14.5) % Plt Count 147 (140-350) 10*3/uL MPV 9.4 (7.4-12.2) FL Immature Gran % (Auto) 0.2 (0-5) % Neut % (Auto) 75.9 (50-80) % Lymph % (Auto) 14.2 (10-50) % Pope % (Auto) 8.8 (5-15) % Eos % (Auto) 0.8 (0-8) % Baso % (Auto) 0.1 (0-1) % Immature Gran # (Auto) 0.02 10*3/UL Neut # (Auto) 6.65 10*3/UL Lymph # (Auto) 1.24 10*3/uL Pope # (Auto) 0.77 (0.3-0.8) 10*3/UL Eos # (Auto) 0.07 10*3/UL Baso # (Auto) 0.01 10*3/UL WBC Morphology Comment Normal morphology (NORM) Plt Morphology Comment Normal morphology (NORM) RBC Morph Comment Normal morphology (NORM) Sodium 135 (135-145) meq/L Potassium 4.6 (3.8-5.2) meq/L Chloride 100 (98-112) meq/L Carbon Dioxide 28 (23-33) meq/L Anion Gap 7 (5-20) BUN 16 (7-22) mg/dL Creatinine 0.7 (0.70-1.50) mg/dL BUN/Creatinine Ratio 22.85 H (6-20) Glucose 96 (78-110) mg/dL Calculated Osmolality 280.0 (267-292) mOsm/kg Calcium 9.0 (8.7-10.7) mg/dL Total Bilirubin 0.7 (0.3-1.2) mg/dL AST 124 H (21-57) IU/L ALT 237 H (21-72) IU/L Alkaline Phosphatase 215 H (38-126) IU/L Total Protein 6.1 (6.1-8.0) g/dL Albumin 3.4 L (3.5-4.8) g/dL Globulin 2.7 (2.50-4.10) g/dL Albumin/Globulin Ratio 1.20 L (1.3-2.0) mg/g Lipase 41 (23-300) IU/L Vitamin B12 (239-931) pg/mL 07/10/18 07/10/18 07/10/18 Range/Units 09:15 09:24 09:24 WBC 5.99 (4.8-10.8) 10^3/uL RBC 4.16 L (4.70-6.10) 10^6/uL Hgb 13.1 L (14.0-18.0) g/dL Hct 39.8 L (42.0-52.0) % MCV 95.7 H (80-90) FL MCH 31.5 H (27-31) PG MCHC 32.9 L (33-37) g/dL RDW Std Deviation 48.2 (39-50) fL RDW Coeff of Dwight 13.9 (11.5-14.5) % Plt Count 135 L (140-350) 10*3/uL MPV 9.1 (7.4-12.2) FL Immature Gran % (Auto) 0.2 (0-5) % Neut % (Auto) 68.8 (50-80) % Lymph % (Auto) 16.5 (10-50) % Pope % (Auto) 12.7 (5-15) % Eos % (Auto) 1.5 (0-8) % Baso % (Auto) 0.3 (0-1) % Immature Gran # (Auto) 0.01 10*3/UL Neut # (Auto) 4.12 10*3/UL Lymph # (Auto) 0.99 10*3/uL Pope # (Auto) 0.76 (0.3-0.8) 10*3/UL Eos # (Auto) 0.09 10*3/UL Baso # (Auto) 0.02 10*3/UL WBC Morphology Comment Normal morphology (NORM) Plt Morphology Comment Normal morphology (NORM) RBC Morph Comment Normal morphology (NORM) Sodium 137 (135-145) meq/L Potassium 4.1 (3.8-5.2) meq/L Chloride 104 (98-112) meq/L Carbon Dioxide 25 (23-33) meq/L Anion Gap 8 (5-20) BUN 18 (7-22) mg/dL Creatinine 0.8 (0.70-1.50) mg/dL BUN/Creatinine Ratio 22.50 H (6-20) Glucose 93 (78-110) mg/dL Calculated Osmolality 285.0 (267-292) mOsm/kg Calcium 9.1 (8.7-10.7) mg/dL Total Bilirubin 0.5 (0.3-1.2) mg/dL AST 84 H (21-57) IU/L ALT 189 H (21-72) IU/L Alkaline Phosphatase 196 H (38-126) IU/L Total Protein 6.6 (6.1-8.0) g/dL Albumin 3.6 (3.5-4.8) g/dL Globulin 3.0 (2.50-4.10) g/dL Albumin/Globulin Ratio 1.20 L (1.3-2.0) mg/g Lipase (23-300) IU/L Vitamin B12 702 (239-931) pg/mL Procedures: [address] [place] [address] PH: DD: [phone] FAX: [phone] ~DIAGNOSTIC IMAGING REPORT~ Patient: SHAQUILLE MANSFIELD : 1940 Sex: M Age: 78 Exam Name: MRI Abdomen WWO Contrast Exam Date: 07/10/18 Report # : [id number] CPT Code: 37389 EMR/MR #: [id number] Ordering: RACH DEL ROSARIO Admiting: MIKE ESCOBEDO MD. Primary: Bebeto Redding MD Attending: RACH DEL ROSARIO DO Signed MRI Abdomen WWO Contrast,07/10/2018 7:00 AM: Clinical History: Pneumobilia and elevated liver enzymes. Previous Exam: CT abdomen pelvis performed July 09, 2018 Findings: Multiplanar MR images are obtained through the abdomen and pelvis both before and after the intravenous demonstration of 12 mL of yield this contrast. There is some mild prominence of the biliary ducts. The mass noted within the right lower liver on the CT scan appears completely cystic on this exam measuring 3.5 x 2.3 x 2.7 cm. The gallbladder is surgically absent. The spleen is probably fatty replaced, but there is no pancreatic duct dilation , and there is no pancreatic mass. There is stable prominence of the left and right hepatic ducts. The major vascular structures are unremarkable. Common bile duct appears grossly normal without filling defect nor truncation to suggest a stone although evaluation is somewhat limited. There is mild prominence of the prostate. Mild degenerative changes of the spine are seen. Impression: 1. Cystic mass within the right lobe of the liver has decreased in size since the CT chest performed May 01, 2017. 2. There is no other intrahepatic mass identified. 3. Prominence of the left and right hepatic ducts stable from the prior exams. Dictated By: 07/10/18 1351 ROBE LOVING MD. Signed By: 07/10/18 1407 ROBE LOVING MD. [address] [place] [address] PH: DD: [phone] FAX: [phone] ~DIAGNOSTIC IMAGING REPORT~ Patient: SHAQUILLE MANSFIELD : 1940 Sex: M Age: 78 Exam Name: CT Abdomen/Pelvis W Contrast Exam Date: 07/09/18 Report # : [id number] CPT Code: 82495 EMR/MR #: [id number] Ordering: RACH DEL ROSARIO Admiting: MIKE ESCOBEDO MD. Primary: Bebeto Redding MD Attending: RACH DEL ROSARIO DO Signed CT Abdomen/Pelvis W Contrast,07/09/2018 4:25 PM: Clinical History: Pneumobilia and elevated liver enzymes with fever. Previous Exam: CT chest performed May 01, 2017 Findings: Multiple helically acquired CT images are obtained through the abdomen and pelvis following the administration of 75 cc of Isovue 300. The lung bases are clear. There is a small hiatal hernia. There is pneumobilia noted within the left lobe of the liver. The pancreas contains a few calcifications. The spleen is unremarkable. The adrenals are unremarkable. The urinary bladder is unremarkable. There is prominence of the prostate. There is no free air nor free fluid. The appendix is normal. There is some prominence of the intrahepatic biliary ducts as well as the common bile duct. The pancreatic duct is not seen. There are fluid density masses within the right lobe of the liver. The largest of these measures 3.6 x 2.6 cm. This measured a density of 20 Hounsfield units. This fluid collection was seen on the CT chest from 2016, but was much larger at that time. There is also some dilation of the common hepatic duct. There are a few subcentimeter hypodensities too small to characterize. Peripheral vascular calcifications are noted. There is mild levoscoliosis of the mid lumbar spine centered at the L2/3 level. Mild degenerative changes are seen of the hips. The urinary bladder is unremarkable. Diffuse degenerative changes of the spine are also noted. Impression: Large fluid collection within the right lobe of the liver measuring 20 Hounsfield units. This was also seen on CT chest from May 01, 2017, but has decreased in size significantly since the prior exam. This could represent a biloma. Interval increasing dilation of the intrahepatic ducts and the common hepatic ducts without dilation of the distal common bile duct. Dictated By: 07/09/18 1715 ROBE LOVING MD. Signed By: 07/09/18 1738 ROBE LOVING MD. [address] [facility] [place] [address] PH: DD: [phone] FAX: [phone] ~DIAGNOSTIC IMAGING REPORT~ Patient: SHAQUILLE MANSFIELD : 1940 Sex: M Age: 78 Exam Name: [place] Myocardial Multi-Spect Exam Date: 07/08/18 Report # : [id number] CPT Code: 38308 EMR/MR #: [id number] Ordering: MIKE ESCOBEDO Admiting: MIKE ESCOBEDO MD. Primary: Bebeto Redding MD Attending: MIKE ESCOBEDO MD. Signed 2 DAY LEXISCAN STRESS & REST MYOCARDIAL PERFUSION SCANS, 07/08/2018 11:00 AM : Clinical History: History of stents with chest pain Previous Exam: None at this facility. The patient was stressed by Dr. Rach Del Rosario The standard Lexiscan protocol was used. Please see the Doctor's report. At the designated time, 36.6 mCi of 99Tc-sestimibi was injected IV. Stress gated tomograms were acquired within one hour of the injection. For the resting scans, 32.4 mCi was injected IV and resting gated tomograms were acquired in similar fashion. Stress scans were performed on July 08, 2018; the resting scans were performed on July 09, 2018. Quantitative and qualitative analyses were performed. Quantitative analysis was performed with the [facility] [id number] protocols. Very low dose limited CT scans of the chest are obtained through the level of the heart for attenuation correction of the gated stress and rest cardiac SPECT data. Non-attenuated and attenuated scans were processed for review, and the attenuated scans were used for final interpretation of this study. Review of the raw data images and quality cloth tester files indicate that these series of examinations are of excellent quality. Stress and rest left ventricular chamber sizes are normal. Stress and rest LVEF are 71 % and 81 %, respectively. Evidence of ischemia. Transient ischemic dilatation ratio is 0.96, with a normal range up to 1.22 for patients stressed with the Geremias protocol and up to 1.33 for patients stressed with the Lexiscan protocol. The very low dose CT scans through the level of the heart demonstrate multiple coronary artery calcifications. There is mild diffuse COPD. Incidental note is made of pneumobilia. Reading: No evidence of ischemia. Normal wall motion and normal ejection fraction. Dictated By: 07/09/18 2778 ROBE LOVING MD. Signed By: 07/09/18 3208 ROBE LOVING MD. Patient Problems - Patient Problem List (1) Pneumobilia Current Visit: Yes Status: Acute Code(s): K83.8 - Other specified diseases of biliary tract Category: Medical (2) Chronic obstructive lung disease Current Visit: No Status: Acute Code(s): J44.9 - Chronic obstructive pulmonary disease, unspecified Category: Medical (3) Coronary artery disease Current Visit: Yes Status: Chronic Code(s): I25.10 - Atherosclerotic heart disease of [place] coronary artery without angina pectoris Qualifiers: Coronary Disease-Associated Artery/Lesion type: [place] artery [place] vs. transplanted heart: [place] heart Associated angina: without angina Qualified Code(s): I25.10 - Atherosclerotic heart disease of [place] coronary artery without angina pectoris Category: Medical (4) Chest pain Current Visit: Yes Status: Resolved Code(s): R07.9 - Chest pain, unspecified Category: Medical
== END 2018-07-10 16:32 | disposition home or self-care (01) | DRG 446 ==
LOC: ER 17:14 → MED/SURG 17:14
PROVIDERS: ADMIT Internal Medicine; ATTEND Family Medicine